=== PATIENT | male | born 2000 | race Caucasian/White ===

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

== ENCOUNTER 2020-03-09 07:09 | Inpatient (IN) | payer OTHER ==
[2020-03-09 07:19] LABS: Glucose,Whole Blood 202 mg/dL (75-99)
[2020-03-09] MEDS ORDERED: ONDANSETRON 4 MG/2 ML VIAL IVP STA ×2 (07:24→11:16)
[2020-03-09] MEDS ORDERED: KETOROLAC 30 MG/ML 1 ML VIAL IVP STA (07:24)
[2020-03-09] MEDS ORDERED: SODIUM CHLORIDE 0.9% 2,000 ML IV STA (07:24)
--- NOTE | 2020-03-09 07:28 | ED ---
General Adult HPI - General Source: patient, RN notes reviewed Mode of arrival: ambulatory Limitations: no limitations <Alfred Horowitz - Last Filed: 03/09/20 09:21> <Gilles Nelson - Last Filed: 03/09/20 10:58> - General Chief complaint: Abdominal Pain Stated complaint: Abdominal Pain Time Seen by Provider: 03/09/20 07:21 - History of Present Illness Initial comments: This a 19-year-old male presents emergency department to complaint of nausea vomiting abdominal pain. Patient states that he is known diabetic is regular injections. Patient states that his blood sugars have been slightly labile states that he started having abdominal discomfort and vomiting around 11 PM last night. Patient denies any fevers chills no localized abdominal pain no chest pain or shortness of breath. Patient states he feels like this when he is in DKA. He has meant that he feels like his heart was racing vomiting he is inc reased thirst and polyuria. Patient denies any hematemesis or coffee-ground emesis. (Alfred Horowitz) - Related Data Home Medications Medication Instructions Recorded Confirmed Insulin Aspart [NovoLOG] See Protocol SQ AC-TID 12/08/18 03/09/20 Insulin Glargine,Hum.rec.anlog 30 unit SQ HS 06/24/19 03/09/20 [Basaglar Kwikpen U-100] Albuterol Sulfate [Proair Hfa] 2 puff INHALATION RT-Q4H PRN 03/09/20 03/09/20 Allergies Allergy/AdvReac Type Severity Reaction Status Date / Time Penicillins Allergy Rash/Hives Verified 03/09/20 08:59 Review of Systems ROS Other: All systems not noted in ROS Statement are negative. <Alfred Horowitz - Last Filed: 03/09/20 09:21> ROS Other: All systems not noted in ROS Statement are negative. <Gilles Nelson - Last Filed: 03/09/20 10:58> ROS Statement: Those systems with pertinent positive or pertinent negative responses have been documented in the HPI. Past Medical History Past Medical History: Diabetes Mellitus Additional Past Medical History / Comment(s): IDDM type I, DKA 5 yrs ago. History of Any Multi-Drug Resistant Organisms: None Reported Past Surgical History: No Surgical Hx Reported Past Anesthesia/Blood Transfusion Reactions: Unable to Obtain Additional Past Anesthesia/Blood Transfusion Reaction / Comment(s): Pt has never had surgery. Past Psychological History: No Psychological Hx Reported Smoking Status: Current every day smoker Past Alcohol Use History: None Reported Past Drug Use History: None Reported - Past Family History Mother Family Medical History: No Reported History Father Family Medical History: Hypertension <Alfred Horowitz - Last Filed: 03/09/20 09:21> General Exam Limitations: no limitations General appearance: alert, in no apparent distress Head exam: Present: atraumatic, normocephalic, normal inspection Eye exam: Present: normal appearance, PERRL, EOMI. Absent: scleral icterus, conjunctival injection, periorbital swelling ENT exam: Present: normal exam, normal oropharynx, mucous membranes moist Neck exam: Present: normal inspection, full ROM. Absent: tenderness, meningismus, lymphadenopathy Respiratory exam: Present: normal lung sounds bilaterally. Absent: respiratory distress, wheezes, rales, rhonchi, stridor Cardiovascular Exam: Present: normal rhythm, tachycardia, normal heart sounds. Absent: systolic murmur, diastolic murmur, rubs, gallop, clicks GI/Abdominal exam: Present: soft, tenderness (Moderate diffuse), normal bowel sounds. Absent: distended, guarding, rebound, rigid Back exam: Absent: CVA tenderness (R), CVA tenderness (L) Neurological exam: Present: alert, oriented X3 Skin exam: Present: warm, dry, intact, normal color. Absent: rash <Alfred Horowitz - Last Filed: 03/09/20 09:21> Course <Gilles Nelson - Last Filed: 03/09/20 10:58> Vital Signs 03/09/20 03/09/20 03/09/20 07:13 08:38 09:37 Temperature 97.8 F Pulse Rate 140 H 116 H 108 H Respiratory 20 16 Rate Blood Pressure 134/89 131/87 O2 Sat by Pulse 96 95 100 Oximetry - Reevaluation(s) Reevaluation #1: 03/09/20 10:58 PA supervision: I did personally evaluate this case patient does present with signs and symptoms and findings consistent with DKA. He will be admitted the case is discussed with Dr. Leahy. (Gilles Nelson) Medical Decision Making - Lab Data Result diagrams: 03/09/20 07:43 03/09/20 07:43 <Alfred Horowitz - Last Filed: 03/09/20 09:21> - Lab Data Result diagrams: 03/09/20 07:43 03/09/20 07:43 <Gilles Nelson - Last Filed: 03/09/20 10:58> - Medical Decision Making 19-year-old male presented for nausea vomiting may well blood sugars. Patient found to be in DKA blood sugar 200 with anion gap at 27 and CO2 of 12. Patient will be admitted for IV hydration, insulin and further management (Alfred Horowitz) - Lab Data Lab Results 03/09/20 03/09/20 03/09/20 Range/Units 07:18 07:43 07:43 WBC 11.3 H (4.0-11.0) k/uL RBC 5.55 (4.30-5.90) m/uL Hgb 18.7 H (13.0-17.5) gm/dL Hct 51.6 (39.0-53.0) % MCV 93.0 (80.0-100.0) fL MCH 33.4 (25.0-35.0) pg MCHC 36.2 (31.0-37.0) g/dL RDW 13.8 (11.5-15.5) % Plt Count 255 (150-450) k/uL Neutrophils % 80 % Lymphocytes % 10 % Monocytes % 8 % Eosinophils % 1 % Basophils % 1 % Neutrophils # 9.0 H (1.3-7.7) k/uL Lymphocytes # 1.1 (1.0-4.8) k/uL Monocytes # 0.9 (0-1.0) k/uL Eosinophils # 0.1 (0-0.7) k/uL Basophils # 0.1 (0-0.2) k/uL VBG pH (7.31-7.41) VBG pCO2 (37-51) mmHg VBG HCO3 (24-28) mmol/L Sodium 138 (137-145) mmol/L Potassium 3.7 (3.5-5.1) mmol/L Chloride 99 (98-107) mmol/L Carbon Dioxide (22-30) mmol/L Anion Gap 27 mmol/L BUN 16 (9-20) mg/dL Creatinine 0.88 (0.66-1.25) mg/dL Est GFR (CKD-EPI)AfAm >90 (>60 ml/min/1.73 sqM) Est GFR (CKD-EPI)NonAf >90 (>60 ml/min/1.73 sqM) Glucose 160 H (74-99) mg/dL POC Glucose (mg/dL) 202 H (75-99) mg/dL POC Glu [employer] Operator ID Ladonna Lewis Lactic Ac Sepsis Rflx Plasma Lactic Acid Moncho (0.7-2.0) mmol/L Calcium 10.1 (8.4-10.2) mg/dL Total Bilirubin 0.6 (0.2-1.3) mg/dL AST 27 (17-59) U/L ALT 22 (4-49) U/L Alkaline Phosphatase 148 H (38-126) U/L Total Protein 8.3 H (6.3-8.2) g/dL Albumin 5.0 (3.5-5.0) g/dL Amylase Cancelled Lipase Cancelled Urine Color Urine Appearance (Clear) Urine pH (5.0-8.0) Ur Specific [place] (1.001-1.035) Urine Protein (Negative) Urine Glucose (UA) (Negative) Urine Ketones (Negative) Urine Blood (Negative) Urine Nitrite (Negative) Urine Bilirubin (Negative) Urine Urobilinogen (<2.0) mg/dL Ur Leukocyte Esterase (Negative) Urine RBC (0-5) /hpf Urine WBC (0-5) /hpf Ur Squamous Epith Cells (0-4) /hpf Amorphous Sediment (None) /hpf Urine Bacteria (None) /hpf Hyaline Casts (0-2) /lpf Granular Casts (0) /lpf Urine Mucus (None) /hpf Acetone, Qual Positive (Negative) 03/09/20 03/09/20 03/09/20 Range/Units 07:43 07:43 08:26 WBC (4.0-11.0) k/uL RBC (4.30-5.90) m/uL Hgb (13.0-17.5) gm/dL Hct (39.0-53.0) % MCV (80.0-100.0) fL MCH (25.0-35.0) pg MCHC (31.0-37.0) g/dL RDW (11.5-15.5) % Plt Count (150-450) k/uL Neutrophils % % Lymphocytes % % Monocytes % % Eosinophils % % Basophils % % Neutrophils # (1.3-7.7) k/uL Lymphocytes # (1.0-4.8) k/uL Monocytes # (0-1.0) k/uL Eosinophils # (0-0.7) k/uL Basophils # (0-0.2) k/uL VBG pH 7.27 L (7.31-7.41) VBG pCO2 39 (37-51) mmHg VBG HCO3 17 L (24-28) mmol/L Sodium (137-145) mmol/L Potassium (3.5-5.1) mmol/L Chloride (98-107) mmol/L Carbon Dioxide (22-30) mmol/L Anion Gap mmol/L BUN (9-20) mg/dL Creatinine (0.66-1.25) mg/dL Est GFR (CKD-EPI)AfAm (>60 ml/min/1.73 sqM) Est GFR (CKD-EPI)NonAf (>60 ml/min/1.73 sqM) Glucose (74-99) mg/dL POC Glucose (mg/dL) (75-99) mg/dL POC Glu [employer] Operator ID Lactic Ac Sepsis Rflx Y Plasma Lactic Acid Mnocho 2.3 H* (0.7-2.0) mmol/L Calcium (8.4-10.2) mg/dL Total Bilirubin (0.2-1.3) mg/dL AST (17-59) U/L ALT (4-49) U/L Alkaline Phosphatase (38-126) U/L Total Protein (6.3-8.2) g/dL Albumin (3.5-5.0) g/dL Amylase Lipase Urine Color Urine Appearance (Clear) Urine pH (5.0-8.0) Ur Specific [place] (1.001-1.035) Urine Protein (Negative) Urine Glucose (UA) (Negative) Urine Ketones (Negative) Urine Blood (Negative) Urine Nitrite (Negative) Urine Bilirubin (Negative) Urine Urobilinogen (<2.0) mg/dL Ur Leukocyte Esterase (Negative) Urine RBC (0-5) /hpf Urine WBC (0-5) /hpf Ur Squamous Epith Cells (0-4) /hpf Amorphous Sediment (None) /hpf Urine Bacteria (None) /hpf Hyaline Casts (0-2) /lpf Granular Casts (0) /lpf Urine Mucus (None) /hpf Acetone, Qual (Negative) 03/09/20 03/09/20 Range/Units 09:16 09:47 WBC (4.0-11.0) k/uL RBC (4.30-5.90) m/uL Hgb (13.0-17.5) gm/dL Hct (39.0-53.0) % MCV (80.0-100.0) fL MCH (25.0-35.0) pg MCHC (31.0-37.0) g/dL RDW (11.5-15.5) % Plt Count (150-450) k/uL Neutrophils % % Lymphocytes % % Monocytes % % Eosinophils % % Basophils % % Neutrophils # (1.3-7.7) k/uL Lymphocytes # (1.0-4.8) k/uL Monocytes # (0-1.0) k/uL Eosinophils # (0-0.7) k/uL Basophils # (0-0.2) k/uL VBG pH (7.31-7.41) VBG pCO2 (37-51) mmHg VBG HCO3 (24-28) mmol/L Sodium (137-145) mmol/L Potassium (3.5-5.1) mmol/L Chloride (98-107) mmol/L Carbon Dioxide (22-30) mmol/L Anion Gap mmol/L BUN (9-20) mg/dL Creatinine (0.66-1.25) mg/dL Est GFR (CKD-EPI)AfAm (>60 ml/min/1.73 sqM) Est GFR (CKD-EPI)NonAf (>60 ml/min/1.73 sqM) Glucose (74-99) mg/dL POC Glucose (mg/dL) 161 H (75-99) mg/dL POC Glu [employer] Operator ID Lactic Ac Sepsis Rflx Plasma Lactic Acid Moncho (0.7-2.0) mmol/L Calcium (8.4-10.2) mg/dL Total Bilirubin (0.2-1.3) mg/dL AST (17-59) U/L ALT (4-49) U/L Alkaline Phosphatase (38-126) U/L Total Protein (6.3-8.2) g/dL Albumin (3.5-5.0) g/dL Amylase Lipase Urine Color Yellow Urine Appearance Cloudy (Clear) Urine pH 6.5 (5.0-8.0) Ur Specific [place] 1.025 (1.001-1.035) Urine Protein 3+ H (Negative) Urine Glucose (UA) 3+ H (Negative) Urine Ketones 4+ H (Negative) Urine Blood Moderate H (Negative) Urine Nitrite Negative (Negative) Urine Bilirubin 2+ H (Negative) Urine Urobilinogen 8.0 (<2.0) mg/dL Ur Leukocyte Esterase Negative (Negative) Urine RBC 1 (0-5) /hpf Urine WBC 12 H (0-5) /hpf Ur Squamous Epith Cells 4 (0-4) /hpf Amorphous Sediment Moderate H (None) /hpf Urine Bacteria Rare H (None) /hpf Hyaline Casts 1 (0-2) /lpf Granular Casts 45 (0) /lpf Urine Mucus Rare H (None) /hpf Acetone, Qual (Negative) Critical Care Time Critical Care Time: Yes Total Critical Care Time: 35 <Alfred Horowitz - Last Filed: 03/09/20 09:21> Critical Care Time: Total 35 minutes of critical care time he is initially evaluated patient and review past medical history according labs fluids and medications. Patient found to be in DKA with anion gap 27 CO2 of 12 pH is 7.27 patiently admitted to telemetry case discussed with admitting physician. (Alfred Horowitz) Disposition <Alfred Horowitz - Last Filed: 03/09/20 09:21> <Gilles Nelson - Last Filed: 03/09/20 10:58> Clinical Impression: DKA, type 1, Nausea & vomiting Disposition: ADMITTED IP TO THIS HOSP Condition: Serious Referrals: Miguel Evans MD [Primary Care Provider] - 1-2 days
[2020-03-09 07:56] LABS: VBG PH 7.27 (7.31-7.41)
[2020-03-09 08:17] LABS: Basophils # (A) 0.1 k/uL (0-0.2); Basophils % (A) 1 %; Eosinophils # (A) 0.1 k/uL (0-0.7); Eosinophils % (A) 1 %; HCT 51.6 % (39.0-53.0); Lymphocytes # (A) 1.1 k/uL (1.0-4.8); Lymphocytes % (A) 10 %; Mean Platelet Volume 7.3; Monocytes # (A) 0.9 k/uL (0-1.0); Monocytes % (A) 8 %; Neutrophils % (A) 80 %; Platelet Count 255 k/uL (150-450); RBC 5.55 m/uL (4.30-5.90); RDW 13.8 % (11.5-15.5); WBC 11.3 k/uL (4.0-11.0)
[2020-03-09 08:35] LABS: MCH 33.4 pg (25.0-35.0); MCHC 36.2 g/dL (31.0-37.0)
[2020-03-09 08:37] LABS: HGB 18.7 gm/dL (13.0-17.5)
[2020-03-09] MEDS ORDERED: diphenhydrAMINE 50 MG/ML 1 ML VIAL IVP STA (09:01)
[2020-03-09] MEDS ORDERED: METOCLOPRAMIDE 5 MG/ML 2 ML VIAL IVP STA (09:01)
[2020-03-09 09:13] LABS: Chloride 99 mmol/L (98-107); Potassium 3.7 mmol/L (3.5-5.1); Sodium 138 mmol/L (137-145)
[2020-03-09 09:15] LABS: ALT 22 U/L (4-49); AST 27 U/L (17-59); African American GFR (CKD) >90 (>60 ml/min/1.73 sqM); Alkaline Phosphatase 148 U/L (38-126); Anion Gap 27 mmol/L; Blood Urea Nitrogen 16 mg/dL (9-20); Calcium 10.1 mg/dL (8.4-10.2); Glucose 160 mg/dL (74-99); Non-African American GFR(CKD) >90 (>60 ml/min/1.73 sqM); Total Bilirubin 0.6 mg/dL (0.2-1.3); Total Protein 8.3 g/dL (6.3-8.2)
[2020-03-09] MEDS ORDERED: INSULIN REGULAR 100 UNIT in SODIUM CHLORIDE 0.9% 100 ML IV SCH (09:30)
[2020-03-09] MEDS ORDERED: D5-0.45% NACL WITH KCL 20MEQ/L 1,000 ML IV SCH (09:30)
[2020-03-09] MEDS: SODIUM CHLORIDE 0.9% 1,000 ML IV SCH ×3 (09:46→17:07)
[2020-03-09 09:53] LABS: Amorphous Sediment,Urine Moderate /hpf; Appearance,Urine Cloudy (Clear); Bacteria,Urine Rare /hpf; Bilirubin,Urine 2+ (Negative); Blood,Urine Moderate (Negative); Color,Urine Yellow; Glucose,Urine (UA) 3+ (Negative); Granular Casts,Urine 45 /lpf (0); Hyaline Casts,Urine 1 /lpf (0-2); Leukocyte Esterase,Urine Negative (Negative); Mucus,Urine Rare /hpf; Nitrite,Urine Negative (Negative); PH, Urine 6.5 (5.0-8.0); Protein,Urine 3+ (Negative); RBC,Urine 1 /hpf (0-5); Specific Gravity,Urine 1.025 (1.001-1.035); Squamous Epithelial Cell,Urine 4 /hpf (0-4); WBC,Urine 12 /hpf (0-5)
[2020-03-09 09:57] LABS: Ketones,Urine 4+ (Negative)
[2020-03-09 09:58] LABS: Glucose,Whole Blood 161 mg/dL (75-99)
[2020-03-09] MEDS ORDERED: MORPHINE SULFATE 2 MG/ML SYRINGE IVP ONE (11:16)
[2020-03-09 11:38] LABS: Chloride 107 mmol/L (98-107); Potassium 3.6 mmol/L (3.5-5.1); Sodium 137 mmol/L (137-145)
[2020-03-09 12:23] LABS: African American GFR (CKD) >90 (>60 ml/min/1.73 sqM); Blood Urea Nitrogen 12 mg/dL (9-20); Glucose 169 mg/dL (74-99); Non-African American GFR(CKD) >90 (>60 ml/min/1.73 sqM); Phosphorus 4.6 mg/dL (2.5-4.5)
[2020-03-09 12:29] LABS: Anion Gap 20 mmol/L; Carbon Dioxide 10 mmol/L (22-30)
[2020-03-09 12:59] LABS: Glucose,Whole Blood 205 mg/dL (75-99)
[2020-03-09] MEDS ORDERED: Potassium Replacement Protocol 1 EACH MISC MISCELLANE PRN ×2 (13:33→17:05)
[2020-03-09] MEDS ORDERED: Magnesium Replacement Protocol 1 EACH MISC MISCELLANE PRN (13:33)
[2020-03-09] MEDS ORDERED: ONDANSETRON 4 MG/2 ML VIAL IVP PRN (13:46)
[2020-03-09 14:15] LABS: Glucose,Whole Blood 188 mg/dL (75-99)
[2020-03-09] MEDS: INSULIN ASPART (NovoLOG) 100 UNIT/ML VIAL SQ SCH ×3 (14:17→20:20)
[2020-03-09] MEDS: D5-0.45% NACL WITH KCL 20MEQ/L 1,000 ML IV SCH ×2 (14:18→20:21)
[2020-03-09] MEDS: INSULIN REGULAR 100 UNIT in SODIUM CHLORIDE 0.9% 100 ML IV SCH (14:21)
[2020-03-09] MEDS ORDERED: ALBUTEROL NEBULIZED 2.5 MG/3 ML INHALATION PRN (14:50)
[2020-03-09 15:13] LABS: Glucose,Whole Blood 179 mg/dL (75-99)
--- NOTE | 2020-03-09 15:19 | P.HPIM ---
History of Present Illness Patient is a pleasant 89-year-old male came in the emergency department complaining some nausea vomiting abdominal pain which started last night. Patient is found to be in DKA. Patient the sometimes misses his insulin. Patient denied any hematemesis which is a patient denied any diarrhea patient denied any fever chills patient and dysuria patient denied any cough. There is no evidence of sepsis at this time. Patient was started on DKA protocol patient is anion gap of 20 with a very low serum bicarbonate. Review of Systems REVIEW OF SYSTEMS: CONSTITUTIONAL: No fever, no malaise, no fatigue. HEENT: No recent visual problems or hearing problems. Denied any sore throat. CARDIOVASCULAR: No chest pain, orthopnea, PND, no palpitations, no syncope. PULMONARY: As mentioned in HPI GASTROINTESTINAL: No diarrhea, no nausea, no vomiting, no abdominal pain. NEUROLOGICAL: No headaches, no weakness, no numbness. HEMATOLOGICAL: Denies any bleeding or petechiae. GENITOURINARY: Denies any burning micturition, frequency, or urgency. MUSCULOSKELETAL/RHEUMATOLOGICAL: Denies any joint pain, swelling, or any muscle pain. ENDOCRINE: Denies any polyuria or polydipsia. The rest of the 14-point review of systems is negative. Past Medical History Past Medical History: Diabetes Mellitus Additional Past Medical History / Comment(s): IDDM type I, DKA 5 yrs ago. History of Any Multi-Drug Resistant Organisms: None Reported Past Surgical History: No Surgical Hx Reported Past Anesthesia/Blood Transfusion Reactions: Unable to Obtain Additional Past Anesthesia/Blood Transfusion Reaction / Comment(s): Pt has never had surgery. Past Psychological History: No Psychological Hx Reported Additional Psychological History / Comment(s): Pt resides with father and sometimes with mother. He is independent. He is currently going to obtain his GED. He works some. Smoking Status: Current every day smoker Past Alcohol Use History: None Reported Past Drug Use History: None Reported - Past Family History Mother Family Medical History: No Reported History Father Family Medical History: Hypertension Medications and Allergies Home Medications Medication Instructions Recorded Confirmed Type Insulin Aspart [NovoLOG] See Protocol SQ AC-TID 12/08/18 03/09/20 History Insulin Glargine,Hum.rec.anlog 30 unit SQ HS 06/24/19 03/09/20 History [Basaglar Kwikpen U-100] Albuterol Sulfate [Proair Hfa] 2 puff INHALATION RT-Q4H PRN 03/09/20 03/09/20 History Allergies Allergy/AdvReac Type Severity Reaction Status Date / Time Penicillins Allergy Rash/Hives Verified 03/09/20 08:59 Physical Exam Vitals: Vital Signs Temp Pulse Pulse Resp BP BP Pulse Ox 03/09/20 12:00 120 H 18 146/102 98 03/09/20 11:24 98 F 120 H 16 129/89 98 03/09/20 09:37 108 H 16 131/87 100 03/09/20 08:38 116 H 95 03/09/20 07:13 97.8 F 140 H 20 134/89 96 Intake and Output 03/09/20 03/09/20 03/09/20 06:59 14:59 22:59 Other: # Voids 1 Weight 68.039 kg PHYSICAL EXAMINATION: GENERAL: The patient is alert and oriented x3, not in any acute distress. Well developed, well nourished. Thin built HEENT: Pupils are round and equally reacting to light. EOMI. No scleral icterus. No conjunctival pallor. Normocephalic, atraumatic. No pharyngeal erythema. No thyromegaly. CARDIOVASCULAR: S1 and S2 present. No murmurs, rubs, or gallops. PULMONARY: Chest is clear to auscultation, no wheezing or crackles. ABDOMEN: Soft, tenderness in the epigastric area, nondistended, normoactive bowel sounds. No palpable organomegaly. MUSCULOSKELETAL: No joint swelling or deformity. EXTREMITIES: No cyanosis, clubbing, or pedal edema. NEUROLOGICAL: Gross neurological examination did not reveal any focal deficits. SKIN: No rashes. Results CBC & Chem 7: 03/09/20 07:43 03/09/20 11:08 Labs: Abnormal Lab Results - Last 24 Hours (Table) 03/09/20 03/09/20 03/09/20 Range/Units 07:18 07:43 07:43 WBC 11.3 H (4.0-11.0) k/uL Hgb 18.7 H (13.0-17.5) gm/dL Neutrophils # 9.0 H (1.3-7.7) k/uL VBG pH (7.31-7.41) VBG HCO3 (24-28) mmol/L Carbon Dioxide (22-30) mmol/L Creatinine (0.66-1.25) mg/dL Glucose 160 H (74-99) mg/dL POC Glucose (mg/dL) 202 H (75-99) mg/dL Plasma Lactic Acid Moncho (0.7-2.0) mmol/L Phosphorus (2.5-4.5) mg/dL Alkaline Phosphatase 148 H (38-126) U/L Total Protein 8.3 H (6.3-8.2) g/dL Urine Protein (Negative) Urine Glucose (UA) (Negative) Urine Ketones (Negative) Urine Blood (Negative) Urine Bilirubin (Negative) Urine WBC (0-5) /hpf Amorphous Sediment (None) /hpf Urine Bacteria (None) /hpf Urine Mucus (None) /hpf 03/09/20 03/09/20 03/09/20 Range/Units 07:43 07:43 09:16 WBC (4.0-11.0) k/uL Hgb (13.0-17.5) gm/dL Neutrophils # (1.3-7.7) k/uL VBG pH 7.27 L (7.31-7.41) VBG HCO3 17 L (24-28) mmol/L Carbon Dioxide (22-30) mmol/L Creatinine (0.66-1.25) mg/dL Glucose (74-99) mg/dL POC Glucose (mg/dL) (75-99) mg/dL Plasma Lactic Acid Moncho 2.3 H* (0.7-2.0) mmol/L Phosphorus (2.5-4.5) mg/dL Alkaline Phosphatase (38-126) U/L Total Protein (6.3-8.2) g/dL Urine Protein 3+ H (Negative) Urine Glucose (UA) 3+ H (Negative) Urine Ketones 4+ H (Negative) Urine Blood Moderate H (Negative) Urine Bilirubin 2+ H (Negative) Urine WBC 12 H (0-5) /hpf Amorphous Sediment Moderate H (None) /hpf Urine Bacteria Rare H (None) /hpf Urine Mucus Rare H (None) /hpf 03/09/20 03/09/20 03/09/20 Range/Units 09:47 11:08 12:57 WBC (4.0-11.0) k/uL Hgb (13.0-17.5) gm/dL Neutrophils # (1.3-7.7) k/uL VBG pH (7.31-7.41) VBG HCO3 (24-28) mmol/L Carbon Dioxide 10 L (22-30) mmol/L Creatinine 0.62 L (0.66-1.25) mg/dL Glucose 169 H (74-99) mg/dL POC Glucose (mg/dL) 161 H 205 H (75-99) mg/dL Plasma Lactic Acid Moncho (0.7-2.0) mmol/L Phosphorus 4.6 H (2.5-4.5) mg/dL Alkaline Phosphatase (38-126) U/L Total Protein (6.3-8.2) g/dL Urine Protein (Negative) Urine Glucose (UA) (Negative) Urine Ketones (Negative) Urine Blood (Negative) Urine Bilirubin (Negative) Urine WBC (0-5) /hpf Amorphous Sediment (None) /hpf Urine Bacteria (None) /hpf Urine Mucus (None) /hpf 03/09/20 03/09/20 Range/Units 14:14 15:12 WBC (4.0-11.0) k/uL Hgb (13.0-17.5) gm/dL Neutrophils # (1.3-7.7) k/uL VBG pH (7.31-7.41) VBG HCO3 (24-28) mmol/L Carbon Dioxide (22-30) mmol/L Creatinine (0.66-1.25) mg/dL Glucose (74-99) mg/dL POC Glucose (mg/dL) 188 H 179 H (75-99) mg/dL Plasma Lactic Acid Moncho (0.7-2.0) mmol/L Phosphorus (2.5-4.5) mg/dL Alkaline Phosphatase (38-126) U/L Total Protein (6.3-8.2) g/dL Urine Protein (Negative) Urine Glucose (UA) (Negative) Urine Ketones (Negative) Urine Blood (Negative) Urine Bilirubin (Negative) Urine WBC (0-5) /hpf Amorphous Sediment (None) /hpf Urine Bacteria (None) /hpf Urine Mucus (None) /hpf Thrombosis Risk Factor Assmnt - Choose All That Apply Any of the Below Risk Factors Present?: No Other Risk Factors: No Thrombosis Risk Factor Assessment Level: Very Low Risk Assessment and Plan Plan: -Diabetic keto acidosis leading to epigastric abdominal pain nausea vomiting: Patient will be continued on D5 half-normal saline with insulin was anion gap resolves patient was switched to subcu any since been followed by initiation of diet and pre-meal insulin with carb counting. At that time patient will be switched to normal saline. -Anion gap and non-anion gap and work acidosis anion gap ACIDOSIS secondary to diverticular acidosis non-anion gap is secondary to hyperchloremia -Leukocytosis reactive seconded to DKA -Tachycardia secondary to severe intravascular depletion from DKA continue with IV fluids as mentioned above --Diabetes mellitus: Patient will be resumed on his long-acting insulin as mentioned above along with pre-meal insulin -DVT prophylaxis early ambulation GI prophylaxis with Protonix
[2020-03-09 15:46] VITALS: BMI 20.9
[2020-03-09 16:04] LABS: Glucose,Whole Blood 150 mg/dL (75-99)
[2020-03-09] MEDS: PANTOPRAZOLE 40 MG/10 ML VIAL IVP SCH (16:04)
[2020-03-09 16:27] LABS: African American GFR (CKD) >90 (>60 ml/min/1.73 sqM); Anion Gap 21 mmol/L; Blood Urea Nitrogen 10 mg/dL (9-20); Chloride 109 mmol/L (98-107); Glucose 154 mg/dL (74-99); Non-African American GFR(CKD) >90 (>60 ml/min/1.73 sqM); Potassium 3.4 mmol/L (3.5-5.1); Sodium 138 mmol/L (137-145)
[2020-03-09 16:37] LABS: Carbon Dioxide 8 mmol/L (22-30)
[2020-03-09 16:59] LABS: Glucose,Whole Blood 148 mg/dL (75-99)
[2020-03-09] MEDS: POTASSIUM CHLORIDE ER 20 MEQ TAB.ER PO SCH ×2 (18:01→19:00)
[2020-03-09 18:03] LABS: Glucose,Whole Blood 183 mg/dL (75-99)
[2020-03-09 19:27] LABS: Glucose,Whole Blood 208 mg/dL (75-99)
[2020-03-09 20:03] LABS: Glucose,Whole Blood 223 mg/dL (75-99)
[2020-03-09 21:03] LABS: Glucose,Whole Blood 222 mg/dL (75-99)
[2020-03-09 21:37] LABS: African American GFR (CKD) >90 (>60 ml/min/1.73 sqM); Anion Gap 15 mmol/L; Blood Urea Nitrogen 9 mg/dL (9-20); Calcium 7.8 mg/dL (8.4-10.2); Carbon Dioxide 12 mmol/L (22-30); Chloride 108 mmol/L (98-107); Glucose 217 mg/dL (74-99); Non-African American GFR(CKD) >90 (>60 ml/min/1.73 sqM); Sodium 135 mmol/L (137-145)
[2020-03-09 22:04] LABS: Glucose,Whole Blood 253 mg/dL (75-99)
[2020-03-09 23:14] LABS: Glucose,Whole Blood 219 mg/dL (75-99)
[2020-03-10 00:08] LABS: Glucose,Whole Blood 227 mg/dL (75-99)
[2020-03-10] MEDS: HYDROcodone/APAP 5-325MG 1 EACH TAB PO PRN ×3 (01:04→12:52)
[2020-03-10 01:08] LABS: Glucose,Whole Blood 206 mg/dL (75-99)
[2020-03-10 02:17] LABS: African American GFR (CKD) >90 (>60 ml/min/1.73 sqM); Anion Gap 13 mmol/L; Calcium 7.9 mg/dL (8.4-10.2); Carbon Dioxide 14 mmol/L (22-30); Chloride 108 mmol/L (98-107); Glucose 216 mg/dL (74-99); Non-African American GFR(CKD) >90 (>60 ml/min/1.73 sqM); Sodium 135 mmol/L (137-145)
[2020-03-10 02:18] LABS: Blood Urea Nitrogen 7 mg/dL (9-20); Potassium 4.3 mmol/L (3.5-5.1)
[2020-03-10 02:18] LABS: Glucose,Whole Blood 211 mg/dL (75-99)
[2020-03-10 03:17] LABS: Glucose,Whole Blood 202 mg/dL (75-99)
[2020-03-10 04:24] LABS: Glucose,Whole Blood 193 mg/dL (75-99)
[2020-03-10] MEDS: SODIUM CHLORIDE 0.9% 1,000 ML IV SCH ×2 (04:28→05:13)
[2020-03-10] MEDS: INSULIN DETEMIR (LEVEMIR) 100 UNIT/ML SYR SQ SCH ×2 (04:28→14:11)
[2020-03-10] MEDS: D5-0.45% NACL WITH KCL 20MEQ/L 1,000 ML IV SCH (04:29)
[2020-03-10] MEDS: INSULIN REGULAR 100 UNIT in SODIUM CHLORIDE 0.9% 100 ML IV SCH (04:38)
[2020-03-10 05:18] LABS: Glucose,Whole Blood 196 mg/dL (75-99)
[2020-03-10 06:10] LABS: Glucose,Whole Blood 197 mg/dL (75-99)
[2020-03-10] MEDS: INSULIN ASPART (NovoLOG) 100 UNIT/ML VIAL SQ SCH ×2 (06:46→12:55)
[2020-03-10 06:55] LABS: Glucose,Whole Blood 187 mg/dL (75-99)
[2020-03-10 08:04] LABS: Glucose,Whole Blood 204 mg/dL (75-99)
[2020-03-10 08:55] LABS: Potassium 3.8 mmol/L (3.5-5.1)
[2020-03-10 08:56] LABS: African American GFR (CKD) >90 (>60 ml/min/1.73 sqM); Anion Gap 8 mmol/L; Blood Urea Nitrogen 6 mg/dL (9-20); Calcium 7.8 mg/dL (8.4-10.2); Carbon Dioxide 19 mmol/L (22-30); Chloride 107 mmol/L (98-107); Glucose 209 mg/dL (74-99); Non-African American GFR(CKD) >90 (>60 ml/min/1.73 sqM); Sodium 134 mmol/L (137-145)
[2020-03-10 09:03] LABS: Glucose,Whole Blood 169 mg/dL (75-99)
[2020-03-10] MEDS ORDERED: SODIUM CHLORIDE 0.9% 1,000 ML IV SCH (09:30)
[2020-03-10 10:08] VITALS: TEMP 97.6
[2020-03-10] MEDS: PANTOPRAZOLE 40 MG/10 ML VIAL IVP SCH (10:20)
[2020-03-10 11:27] LABS: Glucose,Whole Blood 280 mg/dL (75-99)
--- NOTE | 2020-03-10 12:04 | P.HPIM ---
History of Present Illness 19-year-old male came in the emergency department complaining some nausea vomiting abdominal pain which started last night. Patient is found to be in DKA. Patient the sometimes misses his insulin. Patient denied any hematemesis which is a patient denied any diarrhea patient denied any fever chills patient and dysuria patient denied any cough. There is no evidence of sepsis at this time. Patient was started on DKA protocol patient is anion gap of 20 with a very low serum bicarbonate. 03/10/2020 Patient DKA resolved patient is feeling much better with the still has some abdominal discomfort which improves with Protonix patient probably has progressive disease or gastritis because of which patient was discharged on 14 d ays of Prilosec. Patient is being discharged today I am increasing the dose of Lantus but patient received Lantus today morning patient usually takes at night to Nathalie have asked him to take Lantus 15 units tonight as late as possible and resume on 35 units of Lantus tomorrow night. Patient will continue his car counting. PHYSICAL EXAMINATION: GENERAL: The patient is alert and oriented x3, not in any acute distress. Well developed, well nourished. HEENT: Pupils are round and equally reacting to light. EOMI. No scleral icterus. No conjunctival pallor. Normocephalic, atraumatic. No pharyngeal erythema. No thyromegaly. CARDIOVASCULAR: S1 and S2 present. No murmurs, rubs, or gallops. PULMONARY: Chest is clear to auscultation, no wheezing or crackles. ABDOMEN: Soft, nontender, nondistended, normoactive bowel sounds. No palpable organomegaly. MUSCULOSKELETAL: No joint swelling or deformity. EXTREMITIES: No cyanosis, clubbing, or pedal edema. NEUROLOGICAL: Gross neurological examination did not reveal any focal deficits. SKIN: No rashes. Assessment and Plan Plan: -Diabetic keto acidosis leading to epigastric abdominal pain nausea vomiting: -Possible peptic ulcer disease. -Anion gap and non-anion gap and work acidosis anion gap ACIDOSIS secondary to diabetic keto acidosis and hyperchloremia respectively both of which improved -Leukocytosis reactive secondary to DKA -Tachycardia secondary to severe intravascular depletion from DKA improved now with IV fluids but still heart rate is in 100s --Diabetes mellitus: Past Medical History Past Medical History: Diabetes Mellitus Additional Past Medical History / Comment(s): IDDM type I, DKA 5 yrs ago. History of Any Multi-Drug Resistant Organisms: None Reported Past Surgical History: No Surgical Hx Reported Past Anesthesia/Blood Transfusion Reactions: Unable to Obtain Additional Past Anesthesia/Blood Transfusion Reaction / Comment(s): Pt has never had surgery. Past Psychological History: No Psychological Hx Reported Additional Psychological History / Comment(s): Pt resides with father and sometimes with mother. He is independent. He is currently going to obtain his GED. He works some. Smoking Status: Current every day smoker Past Alcohol Use History: None Reported Past Drug Use History: None Reported - Past Family History Mother Family Medical History: No Reported History Father Family Medical History: Hypertension Medications and Allergies Home Medications Medication Instructions Recorded Confirmed Type Insulin Aspart [NovoLOG] See Protocol SQ AC-TID 12/08/18 03/09/20 History Albuterol Sulfate [Proair Hfa] 2 puff INHALATION RT-Q4H PRN 03/09/20 03/09/20 History Insulin Glargine,Hum.rec.anlog 34 unit SQ HS #0 03/10/20 03/09/20 Rx [Basaglar Kwikpen U-100] Allergies Allergy/AdvReac Type Severity Reaction Status Date / Time Penicillins Allergy Rash/Hives Verified 03/09/20 08:59 Physical Exam Vitals: Vital Signs Temp Pulse Resp BP Pulse Ox 03/10/20 09:00 97.6 F 105 H 17 125/83 97 03/10/20 03:39 98.4 F 125 H 17 127/63 97 03/09/20 23:53 98.3 F 114 H 18 118/79 98 03/09/20 20:00 98.1 F 136 H 16 121/73 97 03/09/20 16:30 98.4 F 120 H 19 126/81 96 Intake and Output 03/09/20 03/10/20 03/10/20 22:59 06:59 14:59 Intake Total 1103.230 16.422 780 Output Total 400 600 Balance 703.230 16.422 180 Intake: Intake, IV Titration 23.230 16.422 Amount Insulin Regular 100 unit 23.230 16.422 In Sodium Chloride 0.9% 100 ml @ 0.1 UNITS/KG/HR 6.872 mls/hr IV .[id number] [facility] Rx#:[id number] Oral 1080 780 Output: Urine 400 600 Other: Voiding Method Toilet Toilet # Voids 1 2 Weight 68.039 kg 67.2 kg Results CBC & Chem 7: 03/09/20 07:43 03/10/20 08:09 Labs: Abnormal Lab Results - Last 24 Hours (Table) 03/09/20 03/09/20 03/09/20 Range/Units 11:08 12:57 14:14 Sodium (137-145) mmol/L Potassium (3.5-5.1) mmol/L Chloride (98-107) mmol/L Carbon Dioxide 10 L (22-30) mmol/L BUN (9-20) mg/dL Creatinine 0.62 L (0.66-1.25) mg/dL Glucose 169 H (74-99) mg/dL POC Glucose (mg/dL) 205 H 188 H (75-99) mg/dL Calcium (8.4-10.2) mg/dL Phosphorus 4.6 H (2.5-4.5) mg/dL 03/09/20 03/09/20 03/09/20 Range/Units 15:12 15:49 16:02 Sodium (137-145) mmol/L Potassium 3.4 L (3.5-5.1) mmol/L Chloride 109 H (98-107) mmol/L Carbon Dioxide 8 L* (22-30) mmol/L BUN (9-20) mg/dL Creatinine 0.62 L (0.66-1.25) mg/dL Glucose 154 H (74-99) mg/dL POC Glucose (mg/dL) 179 H 150 H (75-99) mg/dL Calcium 8.0 L (8.4-10.2) mg/dL Phosphorus (2.5-4.5) mg/dL 03/09/20 03/09/20 03/09/20 Range/Units 16:58 18:02 19:25 Sodium (137-145) mmol/L Potassium (3.5-5.1) mmol/L Chloride (98-107) mmol/L Carbon Dioxide (22-30) mmol/L BUN (9-20) mg/dL Creatinine (0.66-1.25) mg/dL Glucose (74-99) mg/dL POC Glucose (mg/dL) 148 H 183 H 208 H (75-99) mg/dL Calcium (8.4-10.2) mg/dL Phosphorus (2.5-4.5) mg/dL 03/09/20 03/09/20 03/09/20 Range/Units 20:02 20:58 21:02 Sodium 135 L (137-145) mmol/L Potassium (3.5-5.1) mmol/L Chloride 108 H (98-107) mmol/L Carbon Dioxide 12 L (22-30) mmol/L BUN (9-20) mg/dL Creatinine 0.56 L (0.66-1.25) mg/dL Glucose 217 H (74-99) mg/dL POC Glucose (mg/dL) 223 H 222 H (75-99) mg/dL Calcium 7.8 L (8.4-10.2) mg/dL Phosphorus (2.5-4.5) mg/dL 03/09/20 03/09/20 03/10/20 Range/Units 22:04 23:12 00:07 Sodium (137-145) mmol/L Potassium (3.5-5.1) mmol/L Chloride (98-107) mmol/L Carbon Dioxide (22-30) mmol/L BUN (9-20) mg/dL Creatinine (0.66-1.25) mg/dL Glucose (74-99) mg/dL POC Glucose (mg/dL) 253 H 219 H 227 H (75-99) mg/dL Calcium (8.4-10.2) mg/dL Phosphorus (2.5-4.5) mg/dL 03/10/20 03/10/20 03/10/20 Range/Units 01:06 01:43 02:16 Sodium 135 L (137-145) mmol/L Potassium (3.5-5.1) mmol/L Chloride 108 H (98-107) mmol/L Carbon Dioxide 14 L (22-30) mmol/L BUN 7 L (9-20) mg/dL Creatinine 0.53 L (0.66-1.25) mg/dL Glucose 216 H (74-99) mg/dL POC Glucose (mg/dL) 206 H 211 H (75-99) mg/dL Calcium 7.9 L (8.4-10.2) mg/dL Phosphorus (2.5-4.5) mg/dL 03/10/20 03/10/20 03/10/20 Range/Units 03:16 04:22 05:17 Sodium (137-145) mmol/L Potassium (3.5-5.1) mmol/L Chloride (98-107) mmol/L Carbon Dioxide (22-30) mmol/L BUN (9-20) mg/dL Creatinine (0.66-1.25) mg/dL Glucose (74-99) mg/dL POC Glucose (mg/dL) 202 H 193 H 196 H (75-99) mg/dL Calcium (8.4-10.2) mg/dL Phosphorus (2.5-4.5) mg/dL 03/10/20 03/10/20 03/10/20 Range/Units 06:09 06:54 08:03 Sodium (137-145) mmol/L Potassium (3.5-5.1) mmol/L Chloride (98-107) mmol/L Carbon Dioxide (22-30) mmol/L BUN (9-20) mg/dL Creatinine (0.66-1.25) mg/dL Glucose (74-99) mg/dL POC Glucose (mg/dL) 197 H 187 H 204 H (75-99) mg/dL Calcium (8.4-10.2) mg/dL Phosphorus (2.5-4.5) mg/dL 03/10/20 03/10/20 03/10/20 Range/Units 08:09 09:02 11:25 Sodium 134 L (137-145) mmol/L Potassium (3.5-5.1) mmol/L Chloride (98-107) mmol/L Carbon Dioxide 19 L (22-30) mmol/L BUN 6 L (9-20) mg/dL Creatinine 0.52 L (0.66-1.25) mg/dL Glucose 209 H (74-99) mg/dL POC Glucose (mg/dL) 169 H 280 H (75-99) mg/dL Calcium 7.8 L (8.4-10.2) mg/dL Phosphorus (2.5-4.5) mg/dL Microbiology - Last 24 Hours (Table) 03/09/20 09:16 Urine Culture - Preliminary Urine,Voided Thrombosis Risk Factor Assmnt - Choose All That Apply Any of the Below Risk Factors Present?: No Other Risk Factors: No Thrombosis Risk Factor Assessment Level: Very Low Risk
[2020-03-10 14:28] VITALS: BP 126/85; PULSE 102; RESP 18
[2020-03-11 10:23] LABS: Hemoglobin A1C 12.9 % (4.0-6.0)
== END 2020-03-10 14:30 | disposition home or self-care (01) | DRG 639 ==
LOC: EC 07:09 → 3SCARD 10:57
PROVIDERS: ADMIT Internal Medicine; ATTEND Internal Medicine
DX: E10.10 Type 1 diabetes mellitus with ketoacidosis without coma (principal); D72.829 Elevated white blood cell count, unspecified; E87.8 Other disorders of electrolyte and fluid balance, not elsewhere classified; F17.210 Nicotine dependence, cigarettes, uncomplicated; Z79.4 Long term (current) use of insulin; Z82.49 Family history of ischemic heart disease and other diseases of the circulatory system; R00.0 Tachycardia, unspecified; R11.2 Nausea with vomiting, unspecified; K27.9 Peptic ulcer, site unspecified, unspecified as acute or chronic, without hemorrhage or perforation; Z88.0 Allergy status to penicillin; Z11.59 Encounter for screening for other viral diseases
CPT/HCPCS: 36415; 80048; 80051; 80053; 81001; 82009; 82565; 82803; 82947; 83036; 83605; 84100; 84520; 85025; 87086; 96361; 96374; 96375; 96376; 99285

== ENCOUNTER 2024-02-29 08:45 | Inpatient (IN) | payer OTHER ==
[2024-02-29] MEDS ORDERED: VANCOMYCIN IV PER PHARMACY 1 EACH MISC MISCELLANE PRN (09:18)
--- NOTE | 2024-02-29 09:21 | ED ---
Skin/Abscess/FB HPI - General Chief complaint: Skin/Abscess/Foreign Body Stated complaint: infection-legs and feet Time Seen by Provider: 02/29/24 08:54 Source: patient, family, RN notes reviewed Mode of arrival: wheelchair Limitations: no limitations - History of Present Illness Initial comments: 23-year-old male presents emergency department chief complaint bilateral leg infection. Patient is a nondiabetic states has been dealing with worsening infe ctions last several weeks. He states he is having increasing sores, blistering, increasing redness and discomfort of his legs. Patient states he was seen in outside facility and was recommended for inpatient treatment. Patient states his primary care physician is Dr. Bennett. Patient was once seen by dermatology felt initially started as a fungal infection possible bacterial infection states his blood sugars have been very labile. He does admit that he has significant neuropathy which makes his leg pain difficult. - Related Data Home Medications Medication Instructions Recorded Confirmed INSULIN LISPRO (For Pump) [humaLOG 0.01 units SQ-PUMP CONTINUOUS 02/29/24 02/29/24 (For Pump)] Insulin Glargine,Hum.rec.anlog 40 units SQ DAILY PRN 02/29/24 02/29/24 [Lantus Solostar Pen] Insulin Lispro [humaLOG Kwikpen] See Protocol SQ ACHS PRN 02/29/24 02/29/24 Allergies Allergy/AdvReac Type Severity Reaction Status Date / Time azithromycin Allergy Rash/Hives Verified 02/29/24 10:09 levofloxacin [From Levaquin] Allergy Tongue Verified 02/29/24 10:09 itched Penicillins Allergy Rash/Hives Verified 02/29/24 10:09 gabapentin AdvReac Swelling/Ed Verified 02/29/24 10:09 dell pregabalin [From Lyrica] AdvReac Swelling/Ed Verified 02/29/24 10:09 dell Review of Systems ROS Statement: Those systems with pertinent positive or pertinent negative responses have been documented in the HPI. ROS Other: All systems not noted in ROS Statement are negative. Past Medical History Past Medical History: Diabetes Mellitus Additional Past Medical History / Comment(s): IDDM type I, History of Any Multi-Drug Resistant Organisms: None Reported Past Surgical History: No Surgical Hx Reported Past Anesthesia/Blood Transfusion Reactions: Unable to Obtain Additional Past Anesthesia/Blood Transfusion Reaction / Comment(s): Pt has never had surgery. Past Psychological History: No Psychological Hx Reported Smoking Status: Vaper Past Alcohol Use History: None Reported Past Drug Use History: None Reported - Past Family History Mother Family Medical History: No Reported History Father Family Medical History: Hypertension General Exam Limitations: no limitations General appearance: alert, in no apparent distress Head exam: Present: atraumatic, normocephalic, normal inspection Respiratory exam: Present: normal lung sounds bilaterally. Absent: respiratory distress, wheezes, rales, rhonchi, stridor Cardiovascular Exam: Present: regular rate, normal rhythm, normal heart sounds. Absent: systolic murmur, diastolic murmur, rubs, gallop, clicks Extremities exam: Present: other (Bilateral lower extremities erythema from feet to the knees with open sores bilaterally on left lateral malleoli region, right medial malleolus region there is a large blister left anterior rodriguez extensive skin sloughing) Skin exam: Present: warm, rash. Absent: dry, normal color Course Vital Signs 02/29/24 02/29/24 02/29/24 09:00 10:20 11:02 Temperature 98.5 F 98.6 F Pulse Rate 107 H 81 88 Respiratory 18 16 18 Rate Blood Pressure 133/78 130/83 124/72 O2 Sat by Pulse 98 100 99 Oximetry 02/29/24 02/29/24 02/29/24 12:08 13:15 14:04 Temperature 98.5 F 98.5 F Pulse Rate 75 85 81 Respiratory 17 17 18 Rate Blood Pressure 136/81 128/72 125/85 O2 Sat by Pulse 99 99 97 Oximetry 02/29/24 15:02 Temperature Pulse Rate 89 Respiratory 17 Rate Blood Pressure 123/72 O2 Sat by Pulse 97 Oximetry Medical Decision Making - Medical Decision Making Was pt. sent in by a medical professional or institution (, PA, FAST FOOD SHIFT LEAD, urgent care, hospital, or snf...) When possible be specific @ -No Did you speak to anyone other than the patient for history (EMS, parent, family, police, friend...)? What history was obtained from this source @ -No Did you review nursing and triage notes (agree or disagree)? Why? @ -I reviewed and agree with nursing and triage notes Were old charts reviewed (outside hosp., previous admission, EMS record, old EKG, old radiological studies, urgent care reports/EKG's, snf records)? Report findings @ -No old charts were reviewed Differential Diagnosis (chest pain, altered mental status, abdominal pain women, abdominal pain men, vaginal bleeding, weakness, fever, dyspnea, syncope, headache, dizziness, GI bleed, back pain, seizure, CVA, palpatations, mental health, musculoskeletal)? @ -[Cellulitis, fungal infection, diabetic ulceration, X-rays interpreted by me (1pt min.). @ -None done CT interpreted by me (1pt min.). @ -None done U/S interpreted by me (1pt. min.). @ -None done What testing was considered but not performed or refused? (CT, X-rays, U/S, labs)? Why? @ -None What meds were considered but not given or refused? Why? @ -None Did you discuss the management of the patient with other professionals (professionals i.e. , PA, FAST FOOD SHIFT LEAD, lab, RT, psych nurse, manager social responsibility, experimental box tester, te acher, chief business officer, rn case manager)? Give summary @ -Dr. Brumfield for admission with ID consult Was smoking cessation discussed for >3mins.? @ -No Was critical care preformed (if so, how long)? @ -No Were there social determinants of health that impacted care today? How? (Homelessness, low income, unemployed, alcoholism, drug addiction, transportation, low edu. Level, literacy, decrease access to med. care, half-way, rehab)? @ -No Was there de-escalation of care discussed even if they declined (Discuss DNR or withdrawal of care, Hospice)? DNR status @ -No What co-morbidities impacted this encounter? (DM, HTN, Smoking, COPD, CAD, Cancer, CVA, ARF, Chemo, Hep., AIDS, mental health diagnosis, sleep apnea, morbid obesity)? @ -Diabetes Was patient admitted / discharged? Hospital course, mention meds given and route, prescriptions, significant lab abnormalities, going to OR and other pertinent info. @ -Admitted patient has extensive cellulitis, ulcerations, blistering of his lower extremities concerning for possible underlying fungal infection will have dual antibiotic therapy, ID consult. Undiagnosed new problem with uncertain prognosis? @ -No Drug Therapy requiring intensive monitoring for toxicity (Heparin, Nitro, Insulin, Cardizem)? @ -No Were any procedures done? @ -No Diagnosis/symptom? @ -Cellulitis lower extremity diabetic ulceration Acute, or Chronic, or Acute on Chronic? @ -Acute Uncomplicated (without systemic symptoms) or Complicated (systemic symptoms)? @ -Complication Side effects of treatment? @ -No Exacerbation, Progression, or Severe Exacerbation? @ -No Poses a threat to life or bodily function? How? (Chest pain, [place], HI, pneumonia, PE, COPD, DKA, ARF, appy, cholecystitis, CVA, Diverticulitis, Homicidal, Suicidal, threat to staff... and all critical care pts) @ -Yes possible sepsis, endorgan failure - Lab Data Result diagrams: 02/29/24 09:02/29/24 09: Lab Results 02/29/24 02/29/24 02/29/24 Range/Units 09:28 09:28 09:28 WBC 6.1 (3.8-10.6) k/uL RBC 5.30 (4.30-5.90) m/uL Hgb 15.4 (13.0-17.5) gm/dL Hct 47.7 (39.0-53.0) % MCV 90.0 (80.0-100.0) fL MCH 29.1 (25.0-35.0) pg MCHC 32.3 (31.0-37.0) g/dL RDW 12.8 (11.5-15.5) % Plt Count 226 (150-450) k/uL MPV 7.7 Neutrophils % 62 % Lymphocytes % 24 % Monocytes % 9 % Eosinophils % 2 % Basophils % 0 % Neutrophils # 3.8 (1.3-7.7) k/uL Lymphocytes # 1.5 (1.0-4.8) k/uL Monocytes # 0.5 (0-1.0) k/uL Eosinophils # 0.1 (0-0.7) k/uL Basophils # 0.0 (0-0.2) k/uL Sodium 137 (137-145) mmol/L Potassium 4.1 (3.5-5.1) mmol/L Chloride 102 (98-107) mmol/L Carbon Dioxide 27 (22-30) mmol/L Anion Gap 8 mmol/L BUN 13 (9-20) mg/dL Creatinine 0.81 (0.66-1.25) mg/dL Est GFR (CKD-EPI)AfAm >90 (>60 ml/min/1.73 sqM) Est GFR (CKD-EPI)NonAf >90 (>60 ml/min/1.73 sqM) Glucose 193 H (74-99) mg/dL Plasma Lactic Acid Moncho 0.9 (0.7-2.0) mmol/L Calcium 9.5 (8.4-10.2) mg/dL Magnesium 1.7 (1.6-2.3) mg/dL Total Bilirubin 0.8 (0.2-1.3) mg/dL AST 20 (17-59) U/L ALT 13 (4-49) U/L Alkaline Phosphatase 87 (38-126) U/L Total Protein 7.2 (6.3-8.2) g/dL Albumin 4.5 (3.5-5.0) g/dL Disposition Clinical Impression: Diabetes, Bilateral lower leg cellulitis, Bilateral leg ulcer Disposition: ADMITTED IP TO THIS [facility] Condition: Fair Time of Disposition: 11:02
[2024-02-29] MEDS: SODIUM CHLORIDE 0.9% 1,000 ML IV ONE (09:30)
[2024-02-29] MEDS: KETOROLAC 15 MG/ML 1 ML VIAL IVP STA (09:33)
[2024-02-29] MEDS: CEFEPIME 2 GM in SODIUM CHLORIDE 0.9% 100 ML IVPB SCH (09:38)
[2024-02-29 09:53] LABS: Basophils % (A) 0 %; Eosinophils # (A) 0.1 k/uL (0-0.7); Eosinophils % (A) 2 %; HCT 47.7 % (39.0-53.0); HGB 15.4 gm/dL (13.0-17.5); Lymphocytes # (A) 1.5 k/uL (1.0-4.8); Lymphocytes % (A) 24 %; MCH 29.1 pg (25.0-35.0); MCHC 32.3 g/dL (31.0-37.0); Mean Platelet Volume 7.7; Monocytes # (A) 0.5 k/uL (0-1.0); Monocytes % (A) 9 %; Neutrophils # (A) 3.8 k/uL (1.3-7.7); Neutrophils % (A) 62 %; Platelet Count 226 k/uL (150-450); RDW 12.8 % (11.5-15.5); WBC 6.1 k/uL (3.8-10.6)
[2024-02-29 10:00] LABS: ALT 13 U/L (4-49); AST 20 U/L (17-59); African American GFR (CKD) >90 (>60 ml/min/1.73 sqM); Albumin 4.5 g/dL (3.5-5.0); Alkaline Phosphatase 87 U/L (38-126); Anion Gap 8 mmol/L; Blood Urea Nitrogen 13 mg/dL (9-20); Calcium 9.5 mg/dL (8.4-10.2); Carbon Dioxide 27 mmol/L (22-30); Chloride 102 mmol/L (98-107); Glucose 193 mg/dL (74-99); Magnesium 1.7 mg/dL (1.6-2.3); Non-African American GFR(CKD) >90 (>60 ml/min/1.73 sqM); Potassium 4.1 mmol/L (3.5-5.1); Sodium 137 mmol/L (137-145); Total Bilirubin 0.8 mg/dL (0.2-1.3); Total Protein 7.2 g/dL (6.3-8.2)
[2024-02-29] MEDS: VANCOMYCIN 1,750 MG in SODIUM CHLORIDE 0.9% 500 ML 500 ML IVPB STA (10:14)
[2024-02-29] MEDS ORDERED: HYDROmorphone 0.5 MG/0.5 ML SYRINGE IVP PRN (11:02)
[2024-02-29] MEDS ORDERED: ACETAMINOPHEN TAB 325 MG TAB PO PRN (11:02)
[2024-02-29] MEDS ORDERED: NALOXONE 0.4 MG/ML 1 ML VIAL IV PRN (11:02)
[2024-02-29] MEDS ORDERED: ONDANSETRON 4 MG/2 ML VIAL IVP PRN (11:02)
[2024-02-29] MEDS ORDERED: INSULIN ASPART (NovoLOG) 100 UNIT/ML VIAL SQ PRN ×2 (11:04→11:36)
[2024-02-29] MEDS ORDERED: INSPUCOR MISCELLANE PRN (11:36)
[2024-02-29] MEDS ORDERED: INSULIN PUMP BASAL RATES 1 EACH MISC MISCELLANE PRN (11:36)
[2024-02-29] MEDS: INSULIN LISPRO (For Pump) 100 UNIT/ML VIAL SQ-PUMP SCH (11:49)
[2024-02-29] MEDS: INSULIN PUMP MEAL BOLUS 1 UNIT MISC MISCELLANE SCH (12:13)
[2024-02-29] MEDS: HYDROcodone/APAP 5-325MG 1 EACH TAB PO PRN (13:42)
[2024-02-29] MEDS: VANCOMYCIN 1,750 MG in SODIUM CHLORIDE 0.9% 500 ML 500 ML IVPB SCH (18:17)
[2024-02-29 20:07] LABS: Glucose,Whole Blood 162 mg/dL (70-110)
--- NOTE | 2024-02-29 21:48 | P.CONS ---
History of Present Illness - Reason for Consult Consult date: 02/29/24 Bilateral leg cellulitis possible fungal Requesting physician: Alfred Horowitz - Chief Complaint Bilateral extremity swelling redness x 1 month - History of Present Illness Patient is a 23-year-old male past medical history significant for diabetes mellitus type 1, patient do herbert, presenting to the hospital for evaluation of bilateral lower extremity pain swelling and redness apparently patient has been dealing with this condition for about a month and has been previously evaluated by dermatology and has been diagnosed with a fungal infection treated with terbinafine however the patient continued to have increasing swelling redness to bilateral extremity with a blister formation to the left leg for the patient presented to the hospital patient denies high-grade fever or any chills and no fever has been recorded subsequently patient was nontachycardic hypotensive or hypoxic did have a white count of 6.1 creatinine 0.81 electrolytes are normal liver enzymes are normal patient was started on cefepime and vancomycin infectious disease was consulted for further management of antibiotic therapy concerning for possible fungal dermatitis as mentioned ea rlier symptom has been going on for more than a month did have diffuse swelling to lower extremity with some superficial ulceration from her to blister with a blister to the left leg patient describes the pain to be dull aching to burning moderate intense without radiation hanging the legs do not seem to help as reported by the mother at the bedside no cultures has been done Review of Systems Positive point and negatives has been mentioned in the HPI, complete review of systems was performed and all other systems are negative Past Medical History Past Medical History: Diabetes Mellitus Additional Past Medical History / Comment(s): IDDM type I, History of Any Multi-Drug Resistant Organisms: None Reported Past Surgical History: No Surgical Hx Reported Past Anesthesia/Blood Transfusion Reactions: Unable to Obtain Additional Past Anesthesia/Blood Transfusion Reaction / Comm: Pt has never had surgery. Past Psychological History: No Psychological Hx Reported Smoking Status: Vaper Past Alcohol Use History: None Reported Past Drug Use History: None Reported - Past Family History Mother Family Medical History: No Reported History Father Family Medical History: Hypertension Medications and Allergies Home Medications Medication Instructions Recorded Confirmed Type INSULIN LISPRO (For Pump) [humaLOG 0.01 units SQ-PUMP CONTINUOUS 02/29/24 02/29/24 History (For Pump)] Insulin Glargine,Hum.rec.anlog 40 units SQ DAILY PRN 02/29/24 02/29/24 History [Lantus Solostar Pen] Insulin Lispro [humaLOG Kwikpen] See Protocol SQ ACHS PRN 02/29/24 02/29/24 History Acetaminophen Tab [Tylenol] 650 mg PO Q6HR PRN tab 03/03/24 Rx Cephalexin [Keflex] 500 mg PO Q8HR 7 Days #21 cap 03/03/24 Rx HYDROcodone/APAP 7.5-325MG [[place] 1 each PO Q4H PRN #6 tab 03/03/24 Rx 7.5-325] Allergies Allergy/AdvReac Type Severity Reaction Status Date / Time azithromycin Allergy Rash/Hives Verified 02/29/24 10:09 levofloxacin [From Levaquin] Allergy Tongue Verified 02/29/24 10:09 itched Penicillins Allergy Rash/Hives Verified 02/29/24 10:09 gabapentin AdvReac Swelling/Ed Verified 02/29/24 10:09 dell pregabalin [From Lyrica] AdvReac Swelling/Ed Verified 02/29/24 10:09 dell Physical Exam Vitals: Vital Signs Temp Pulse Resp BP Pulse Ox 02/29/24 11:02 88 18 124/72 99 02/29/24 10:20 98.6 F 81 16 130/83 100 02/29/24 09:00 98.5 F 107 H 18 133/78 98 Intake and Output 02/28/24 02/29/24 02/29/24 22:59 06:59 14:59 Other: Weight 104.326 kg GENERAL DESCRIPTION: Young male lying in bed, no distress. No tachypnea or accessory muscle of respiration use. HEENT: Shows Pallor , no scleral icterus. Oral mucous membrane is dry. No pharyngeal erythema or thrush NECK: Trachea central, no thyromegaly. LUNGS: Unlabored breathing. Clear to auscultation anteriorly. No wheeze or crackle. HEART: S1, S2, regular rate and rhythm. No loud murmur ABDOMEN: Soft, no tenderness , guarding or rigidity, no organomegaly EXTREMITIES: Bilateral lower extremity few swelling redness with a blister formation to the left leg he also have a dry crusted skin to bilateral feet and some superficial ulceration no purulent drainage SKIN: No rash, no masses palpable. NEUROLOGICAL: The patient is awake, alert, oriented x3, mood and affect normal. Results CBC & Chem 7: 03/01/24 09:03 03/02/24 09:06 Labs: Abnormal Lab Results - Last 24 Hours (Table) 02/29/24 Range/Units 09:28 Glucose 193 H (74-99) mg/dL Assessment and Plan (1) Allergy to multiple antibiotics Status: Acute Code(s): Z88.1 - ALLERGY STATUS TO OTHER ANTIBIOTIC AGENTS SNOMED Code(s): 436508732 (2) Bilateral lower leg cellulitis Status: Acute Code(s): L03.116 - CELLULITIS OF LEFT LOWER LIMB; L03.115 - CELLULITIS OF RIGHT LOWER LIMB SNOMED Code(s): 526374015 Plan: 1patient presented hospital with bilateral lower extremity erythema some superficial ulceration from ruptured blister and did have a large blister to the left leg concerning for cellulitis failing therapy of terbinafine clinical doubt fungal dermatitis concerning for possible venous stasis dermatitis and a component of bacterial cellulitis 2-patient with multiple antibiotic ALLERGIES that would limit the number of antibiotic safe to use 3-we will obtain cultures from the superficial ulceration 4-patient to continue with cefepime and vancomycin while waiting for the culture to finalize 5-wound care consult for local wound care We will follow on clinical condition and cultures to further adjust medication if needed Thank you for this consultation we will follow the patient along with you Dictation was produced using [employer] dictation software. please excuse any grammatical, word or spelling errors. Time with Patient: Greater than 30
--- NOTE | 2024-03-01 00:18 | P.HPIM ---
History of Present Illness H&P Date: 02/29/24 Chief Complaint: Leg swelling and pain and blisters Patient is a 23-year-old male with a past medical history of diabetes type 1 on insulin pump presents to ER with complaints of bilateral respiratory pain swelling and redness and blister formation. Patient states he has been dealing with this condition for almost about a month and was also evaluated by dermatology he was diagnosed with fungal infection treated with terbinafine however the patient continued to have increased swelling and redness of bilateral extremities with blister formation of the left leg especially and bruising purulent and serosanguineous discharge. Otherwise patient denies any fever or chills. No nausea vomiting abdominal pain or diarrhea. No cough or sputum production. Laboratory test showed WBC 6.0 hemoglobin 15.4 and platelets 226 sodium 137 potassium 4.1 chloride 102 bicarb is 27 BUN 13 and creatinine 0.81 and blood sugar is 193 liver enzymes are not elevated. Review of Systems Constitutional: Patient denies any fever or chills . No generalized weakness or weight loss. Abdomen: Patient denied nausea vomiting and diarrhea and abdominal pain. Cardiovascular: Patient denies any chest pain or short of breath no palpitations. Respiratory: patient denied any cough or sputum production. No shortness of breath Neurologic: Patient denied any numbness or tingling. no headache. Musculoskeletal: Patient denies any complaints of joint swelling or deformity. Leg swelling and blisters and ulcers and pain. Skin: Blisters on the left lower extremity Psychiatric: Negative Endocrine: No heat or cold intolerance. No recent weight gain. Genitourinary: No dysuria or hematuria. All other 14 point ROS negative except the above Past Medical History Past Medical History: Diabetes Mellitus Additional Past Medical History / Comment(s): IDDM type I, History of Any Multi-Drug Resistant Organisms: None Reported Past Surgical History: No Surgical Hx Reported Past Anesthesia/Blood Transfusion Reactions: Unable to Obtain Additional Past Anesthesia/Blood Transfusion Reaction / Comment(s): Pt has never had surgery. Past Psychological History: No Psychological Hx Reported Smoking Status: Vaper Past Alcohol Use History: None Reported Past Drug Use History: None Reported - Past Family History Mother Family Medical History: No Reported History Father Family Medical History: Hypertension Medications and Allergies Home Medications Medication Instructions Recorded Confirmed Type INSULIN LISPRO (For Pump) [humaLOG 0.01 units SQ-PUMP CONTINUOUS 02/29/24 0 02/29/24 History (For Pump)] Insulin Glargine,Hum.rec.anlog 40 units SQ DAILY PRN 02/29/24 02/29/24 History [Lantus Solostar Pen] Insulin Lispro [humaLOG Kwikpen] See Protocol SQ ACHS PRN 02/29/24 02/29/24 History Allergies Allergy/AdvReac Type Severity Reaction Status Date / Time azithromycin Allergy Rash/Hives Verified 02/29/24 10:09 levofloxacin [From Levaquin] Allergy Tongue Verified 02/29/24 10:09 itched Penicillins Allergy Rash/Hives Verified 02/29/24 10:09 gabapentin AdvReac Swelling/Ed Verified 02/29/24 10:09 dell pregabalin [From Lyrica] AdvReac Swelling/Ed Verified 02/29/24 10:09 dell Physical Exam Vitals: Vital Signs Temp Pulse Resp BP Pulse Ox 02/29/24 14:04 98.5 F 81 18 125/85 97 02/29/24 13:15 85 17 128/72 99 02/29/24 12:08 98.5 F 75 17 136/81 99 02/29/24 11:02 88 18 124/72 99 02/29/24 10:20 98.6 F 81 16 130/83 100 02/29/24 09:00 98.5 F 107 H 18 133/78 98 Intake and Output 02/28/24 02/29/24 02/29/24 22:59 06:59 14:59 Other: Weight 104.326 kg PHYSICAL EXAMINATION: Patient is lying in the bed comfortably, no acute distress, awake alert and oriented.. HEENT: Normocephalic. Neck is supple. Pupils reactive. Nostrils clear. Oral cavity is moist. Neck reveals no JVD, carotid bruits, or thyromegaly. CHEST EXAMINATION: Trachea is central. Symmetrical expansion. Lung pinto clear to auscultation and percussion. CARDIAC: Normal S1, S2 with no gallops. No murmurs ABDOMEN: Soft. Bowel sounds normal. No organomegaly. No abdominal bruits. Extremities: Patient does have bilateral lower extremity significant swelling and diabetic ulcers and also left lower extremity blisters and oozing serous fluid.. No clubbing or cyanosis Neurologically awake, alert, oriented x3 with well-coordinated movements. No focal deficits noted Skin: No rash or skin lesions. Psychiatric: Coperative. Nonsuicidal Musculoskeletal: No joint swelling or deformity. Normal range of motion. Results CBC & Chem 7: 03/01/24 09:03 03/01/24 11:55 Labs: Abnormal Lab Results - Last 24 Hours (Table) 02/29/24 Range/Units 09:28 Glucose 193 H (74-99) mg/dL Thrombosis Risk Factor Assmnt - DVT/VTE Prophylaxis DVT/VTE Prophylaxis: Pharmacologic Prophylaxis ordered Assessment and Plan Assessment: Bilateral lower extremity swelling, cellulitis and diabetic ulcers and blister formation on the left lower leg. Patient was recently treated for fungal dermatitis with epinephrine was seen by dermatology as an outpatient. Final component of bacterial cellulitis. Diabetes type 1 insulin-dependent GI and DVT prophylaxis Plan: Patient will be continued on antibiotics vancomycin and ceftriaxone. Patient is allergic to multiple antibiotics. Wound care is consulted and ID evaluation. Continue with insulin pump and sliding scale as needed. Follow-up closely. Continue with pain management. Follow-up culture reports. Time with Patient: Greater than 30
[2024-03-01 06:13] LABS: Glucose,Whole Blood 107 mg/dL (70-110)
[2024-03-01] MEDS: KETOROLAC 15 MG/ML 1 ML VIAL IVP PRN (08:54)
[2024-03-01] MEDS ORDERED: INSULIN DETEMIR (LEVEMIR) 100 UNIT/ML SYR SQ PRN (09:00)
[2024-03-01 09:07] LABS: Basophils % (A) 0 %; Eosinophils # (A) 0.2 k/uL (0-0.7); Eosinophils % (A) 2 %; HCT 46.3 % (39.0-53.0); HGB 15.5 gm/dL (13.0-17.5); Lymphocytes # (A) 1.7 k/uL (1.0-4.8); Lymphocytes % (A) 22 %; MCH 30.5 pg (25.0-35.0); MCHC 33.4 g/dL (31.0-37.0); MCV 91.3 fL (80.0-100.0); Mean Platelet Volume 8.4; Monocytes # (A) 0.7 k/uL (0-1.0); Monocytes % (A) 10 %; Neutrophils # (A) 4.8 k/uL (1.3-7.7); Neutrophils % (A) 64 %; Platelet Count 201 k/uL (150-450); RBC 5.07 m/uL (4.30-5.90); RDW 12.9 % (11.5-15.5); WBC 7.5 k/uL (3.8-10.6)
--- NOTE | 2024-03-01 10:14 | P.CONS ---
History of Present Illness - Reason for Consult Consult date: 03/01/24 wound care - History of Present Illness This is a 23-year-old male with past medical history significant for type 1 diabetes. Patient developed redness and blistering to lower extremities he was followed with dermatology who diagnosed him with a fungal infection and started him on an antifungal medication. After a month of the medication the immigration judge's instructed him to get a second opinion at either [facility] or [facility]. Due to transportation concerns patient was unable to make any appointments at those facilities. Patient has increased redness and swelling noted to bilateral lower extremities that brought him to the emergency room for evaluation. Patient has multiple open ulcerations to bilateral lower ex tremities anterior and posterior from the knees to the feet. Patient also has blistering and drainage that is serous in appearance to multiple areas of the lower extremities. Patient denies a diagnosis of venous insufficiency. He has not had any venous Dopplers done in the past. Patient states that he has history of neuropathy and finds that it is comfortable for him to have his legs dependent with a fan blowing on them. Patient states that he has tried compression in the past but he is unable to tolerate anything on his legs due to his neuropathy. Ulcerations have significant amount of slough and nonviable tissue present no granulation noted. 2+ pitting edema noted to bilateral lower extremities. Review Of Systems: Constitutional: No fever, no chills, no night sweats. No weight change. No weakness, fatigue or lethargy. No daytime sleepiness. Integumentary:reports wounds, no lesions. No rash or pruritus. No unusual bruising. No change in hair or nails. Physical exam: General Appearance: Alert, cooperative, no distress, appears stated age. Skin: See HPI all other Skin color, texture, tugor normal, no rashes or lesions. Neurologic: Alert oriented x3 Assessment: 1. Nonhealing ulceration with fat layer exposure multiple sites right lower extremity 2. Nonhealing ulceration of the with fat layer exposure multiple sites left lower extremity 3. Diabetes with skin ulceration 4. Chronic venous hypertension with ulcerations and inflammation of bilateral lower extremities. Plan: 1. Bilateral venous Doppler ordered to rule out venous insufficiency. Apply absorptive silver moistened, zinc barrier cream to intact skin, wrap with rolled gauze and secure with tape. Wrap with Lan wrap for compression. Elevate legs over heart for 30 minutes 3 times a day. Avoid sitting with legs dependent. Patient would benefit from advanced wound care and wound care setting. We have happy to see him upon discharge. Thank you for the consultation any questions please contact the wound care center DNP note has been reviewed and discussed with Dr. Hardy and the impression and plan of care has been directed as dictated. Past Medical History Past Medical History: Diabetes Mellitus Additional Past Medical History / Comment(s): IDDM type I, History of Any Multi-Drug Resistant Organisms: None Reported Past Surgical History: No Surgical Hx Reported Past Anesthesia/Blood Transfusion Reactions: Unable to Obtain Additional Past Anesthesia/Blood Transfusion Reaction / Comm: Pt has never had s urgery. Past Psychological History: No Psychological Hx Reported Smoking Status: Vaper Past Alcohol Use History: None Reported Past Drug Use History: None Reported - Past Family History Mother Family Medical History: No Reported History Father Family Medical History: Hypertension Medications and Allergies Home Medications Medication Instructions Recorded Confirmed Type INSULIN LISPRO (For Pump) [humaLOG 0.01 units SQ-PUMP CONTINUOUS 02/29/24 02/29/24 History (For Pump)] Insulin Glargine,Hum.rec.anlog 40 units SQ DAILY PRN 02/29/24 02/29/24 History [Lantus Solostar Pen] Insulin Lispro [humaLOG Kwikpen] See Protocol SQ ACHS PRN 02/29/24 02/29/24 History Allergies Allergy/AdvReac Type Severity Reaction Status Date / Time azithromycin Allergy Rash/Hives Verified 02/29/24 10:09 levofloxacin [From Levaquin] Allergy Tongue Verified 02/29/24 10:09 itched Penicillins Allergy Rash/Hives Verified 02/29/24 10:09 gabapentin AdvReac Swelling/Ed Verified 02/29/24 10:09 dell pregabalin [From Lyrica] AdvReac Swelling/Ed Verified 02/29/24 10:09 dell Physical Exam Vitals: Vital Signs Temp Pulse Pulse Resp BP BP Pulse Ox 03/01/24 08:00 97.6 F 70 20 130/73 100 03/01/24 02:00 97.4 F L 62 15 121/80 100 02/29/24 20:19 63 20 02/29/24 19:42 97.5 F L 63 20 127/79 100 02/29/24 18:21 98.5 F 16 121/89 99 02/29/24 16:15 98.4 F 68 17 120/90 99 02/29/24 15:02 89 17 123/72 97 02/29/24 14:04 98.5 F 81 18 125/85 97 02/29/24 13:15 85 17 128/72 99 02/29/24 12:08 98.5 F 75 17 136/81 99 02/29/24 11:02 88 18 124/72 99 02/29/24 10:20 98.6 F 81 16 130/83 100 Intake and Output 02/29/24 03/01/24 03/01/24 22:59 06:59 14:59 Intake Total 1560 Output Total 300 Balance -300 1560 Intake: Intake, IV Titration 600 Amount Cefepime 2 gm In Sodium 100 Chloride 0.9% 100 ml @ 25 mls/hr IVPB Q12HR [facility] Rx #:[id number] Vancomycin 1,750 mg In 500 Sodium Chloride 0.9% 500 ml 500 ml @ 167 mls/hr IVPB Q8H [facility] Rx#: [id number] Oral 960 Output: Urine 300 Other: Voiding Method Toilet # Voids 3 Weight 104.326 kg Results CBC & Chem 7: 03/01/24 09:03 02/29/24 09:28 Labs: Abnormal Lab Results - Last 24 Hours (Table) 02/29/24 Range/Units 20:05 POC Glucose (mg/dL) 162 H (70-110) mg/dL Assessment and Plan (1) Non-pressure ulcer of left lower extremity with fat layer exposed Current Visit: Yes Status: Acute Code(s): L97.922 - NON-PRS [facility] UL UNSP PRT OF L LOW LEG W FAT LAYER EXPOSED SNOMED Code(s): 55728779 (2) Non-pressure ulcer of right lower extremity with fat layer exposed Current Visit: Yes Status: Acute Code(s): L97.912 - NON-PRS [facility] UL UNSP PRT OF R LOW LEG W FAT LAYER EXPOSED SNOMED Code(s): 75077788 (3) Type 2 diabetes mellitus with other skin ulcer Current Visit: Yes Status: Acute Code(s): E11.622 - TYPE 2 DIABETES MELLITUS WITH OTHER SKIN ULCER; L98.499 - NON-PRESSURE CHRONIC ULCER OF SKIN OF SITES W UNSP SEVERITY SNOMED Code(s): 952730158471532 (4) Chronic venous hypertension (idiopathic) with ulcer and inflammation of bilateral lower extremity Current Visit: Yes Status: Acute Code(s): I87.333 - CHRONIC VENOUS HTN W ULCER AND INFLAM OF BILATERAL LOW EXTRM SNOMED Code(s): 001348757211228
[2024-03-01] MEDS: ZINC OXIDE PASTE (Z-GUARD) 1 APPLIC TOPICAL SCH (10:42)
--- NOTE | 2024-03-01 11:03 | US ---
EXAMINATION TYPE: US venous doppler duplex LE DATE OF EXAM: 03/01/2024 10:06 AM COMPARISON: NONE CLINICAL INDICATION: Male, 23 years old with history of venous Insufficiency; Bilateral lower extremi ty swelling, blistering, and open wounds. Patient is a type one diabetic SIDE PERFORMED: Bilateral TECHNIQUE: The lower extremity deep venous system is examined utilizing real time linear array sonog damian with graded compression, doppler sonography and color-flow sonography. VESSELS IMAGED: Common Femoral Vein Deep Femoral Vein Greater Saphenous Vein * Femoral Vein Popliteal Vein Small Saphenous Vein * Proximal Calf Veins (* superficial vessels) Right Leg: Negative for DVT Left Leg: Negative for DVT No evidence of insufficiency. IMPRESSION: Grayscale, color doppler, spectral doppler imaging performed of the deep veins of the lo wer extremities. There is normal flow, compressibility, vascular waveforms.
--- NOTE | 2024-03-01 12:29 | P.PN ---
Subjective Progress Note Date: 03/01/24 Principal diagnosis: Reason for follow-up is bilateral lower extremity wound and cellulitis Patient is a 23-year-old male past medical history significant for diabetes mellitus type 1, patient do herbert, presenting to the hospital for evaluation of bilateral lower extremity pain swelling and redness that has been going on for about a month failing outpatient oral terbinafine admitted to hospital concerning for cellulitis. On today's evaluation that is 03/01/2024,the patient remains to be afebrile, patient is on room air not requiring supplemental oxygen and denies any shortness of breath no chest pain or cough.Patient denies having any nausea or vomiting, no abdominal pain still complaining of burning pain to the lower extremity some improvement with the pain medication. Patient white count is 7.5 cultures currently pending Objective - Vital Signs Vital signs: Vital Signs Temp 97.6 F 03/01/24 08:00 Pulse 70 03/01/24 08:00 Resp 20 03/01/24 08:00 BP 130/73 03/01/24 08:00 Pulse Ox 100 03/01/24 08:00 FiO2 Intake & Output 02/29/24 03/01/24 03/01/24 18:59 06:59 18:59 Intake Total 1560 Output Total 300 Balance -300 1560 Weight 104.326 kg Intake: Intake, IV Titration 600 Amount Cefepime 2 gm In Sodium 100 Chloride 0.9% 100 ml @ 25 mls/hr IVPB Q12HR [facility] Rx #:[id number] Vancomycin 1,750 mg In 500 Sodium Chloride 0.9% 500 ml 500 ml @ 167 mls/hr IVPB Q8H [facility] Rx#: [id number] Oral 960 Output: Urine 300 Other: Voiding Method Toilet # Voids 3 - Exam GENERAL DESCRIPTION: Young male up in bed in no distress RESPIRATORY SYSTEM: Unlabored breathing , decreased breath sounds at bases HEART: S1 S2 regular rate and rhythm , ABDOMEN: Soft , no tenderness EXTREMITIES: Bilateral extremity with erythema slightly decreased did have blister to the left leg superficial ulceration no drainage - Labs CBC & Chem 7: 03/01/24 09:03 02/29/24 09:28 Labs: Abnormal Lab Results - Last 24 Hours (Table) 02/29/24 Range/Units 20:05 POC Glucose (mg/dL) 162 H (70-110) mg/dL Assessment and Plan (1) Allergy to multiple antibiotics Current Visit: Yes Status: Acute Code(s): Z88.1 - ALLERGY STATUS TO OTHER ANTIBIOTIC AGENTS SNOMED Code(s): 991423441 (2) Bilateral lower leg cellulitis Current Visit: Yes Status: Acute Code(s): L03.116 - CELLULITIS OF LEFT LOWER LIMB; L03.115 - CELLULITIS OF RIGHT LOWER LIMB SNOMED Code(s): 313635031 Plan: 1patient presented to the hospital with bilateral lower extremity erythema some superficial ulceration from ruptured blister and did have a large dressing to the left leg concerning for cellulitis failing therapy of terbinafine clinical doubt fungal dermatitis concerning for possible venous stasis dermatitis and a component of bacterial cellulitis 2-patient with multiple antibiotic ALLERGIES that would limit the number of antibiotic safe to use 3-cultures are currently pending continue current wound care per the wound care team 4-patient to continue with t cefepime and vancomycin while waiting for the culture to finalize Mother at the bedside questions were answered Dictation was produced using [employer] dictation software. please excuse any grammatical, word or spelling errors. Time with Patient: Less than 30
[2024-03-01 13:06] LABS: African American GFR (CKD) >90 (>60 ml/min/1.73 sqM); Anion Gap 5 mmol/L; Blood Urea Nitrogen 11 mg/dL (9-20); Calcium 8.8 mg/dL (8.4-10.2); Carbon Dioxide 26 mmol/L (22-30); Chloride 106 mmol/L (98-107); Glucose 200 mg/dL (74-99); Non-African American GFR(CKD) >90 (>60 ml/min/1.73 sqM); Potassium 4.2 mmol/L (3.5-5.1); Sodium 137 mmol/L (137-145)
[2024-03-01 16:55] LABS: Glucose,Whole Blood 62 mg/dL (70-110)
[2024-03-01 17:18] LABS: Glucose,Whole Blood 73 mg/dL (70-110)
[2024-03-01 20:18] LABS: Glucose,Whole Blood 194 mg/dL (70-110)
[2024-03-01] MEDS: HYDROcodone/APAP 7.5-325MG 1 EACH TAB PO PRN (22:09)
[2024-03-02 07:25] LABS: Glucose,Whole Blood 114 mg/dL (70-110)
[2024-03-02] MEDS: VANCOMYCIN TROUGH DUE 1 EACH MISC MISCELLANE ONE (09:12)
[2024-03-02 09:33] LABS: African American GFR (CKD) >90 (>60 ml/min/1.73 sqM); Anion Gap 10 mmol/L; Blood Urea Nitrogen 8 mg/dL (9-20); Calcium 9.1 mg/dL (8.4-10.2); Carbon Dioxide 22 mmol/L (22-30); Chloride 109 mmol/L (98-107); Glucose 123 mg/dL (74-99); Non-African American GFR(CKD) >90 (>60 ml/min/1.73 sqM); Sodium 141 mmol/L (137-145)
[2024-03-02 09:46] LABS: Potassium 4.2 mmol/L (3.5-5.1)
[2024-03-02 11:59] LABS: Glucose,Whole Blood 118 mg/dL (70-110)
[2024-03-02] MEDS: diazePAM 5 MG TAB PO PRN (12:14)
[2024-03-02] MEDS: HYDROcodone/APAP 7.5-325MG 1 EACH TAB PO PRN (14:26)
--- NOTE | 2024-03-02 15:35 | P.PN ---
Subjective Progress Note Date: 03/02/24 Patient is a 23-year-old male with a past medical history of diabetes type 1 on insulin pump presents to ER with complaints of bilateral respiratory pain swelling and redness and blister formation. Patient states he has been dealing with this condition for almost about a month and was also evaluated by [facility] he was diagnosed with fungal infection treated with terbinafine however the patient continued to have increased swelling and redness of bilateral extremities with blister formation of the left leg especially and bruising purulent and serosanguineous discharge. Otherwise patient denies any fever or chills. No nausea vomiting abdominal pain or diarrhea. No cough or sputum production. Laboratory test showed WBC 6.0 hemoglobin 15.4 and platelets 226 sodium 137 potassium 4.1 chloride 102 bicarb is 27 BUN 13 and creatinine 0.81 and blood sugar is 193 liver enzymes are not elevated. 03/02/2024 Patient is seen and evaluated in follow-up currently maintained on IV antibiotics with infectious disease following closely. Preliminary cultures thus far showing presumptive Staph aureus and awaiting finalized cultures to determine discharge antibiotics. 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 Nursing staff have attempted to move the patient to another room although now patient is refusing. Discussed with the patient about leaving AGAINST MEDICAL ADVICE and risk versus benefits and encouraged the patient to stay for finalized cultures to determine if patient will require IV antibiotics and/or oral therapy. Continue with local wound care and again instructed the patient to elevate lower extremities. Patient on each exam has been sitting up at the side of the bed with bilateral lower extremities dependent and continues with swelling and redness. Significant amount of paste and cream noted on the lower extremities with sloughing and odor noted. Patient is afebrile with no reports of chest pain or shortness of breath. Patient has no white count and BMP within normal limits. Blood sugars have been well-controlled and will continue current regimen. Adjust medications for pain and will add low-dose Valium as needed. Review of systems: Constitutional: No reports of fatigue, fever, or chills Cardiovascular: No reports of chest pain or palpitations Respiratory: No reports of shortness of breath or cough GI: No reports of nausea, vomiting, or diarrhea : No reports of dysuria or retention Neurovascular: No reports of weakness or numbness, reports of bilateral lower extremity pain and swelling All medications have been reviewed Physical exam: Gen: This is a 23-year-old male who is awake, alert and oriented x 3, well- developed, ill-appearing, obese HEENT: Head is atraumatic, normocephalic. Pupils equal, round. Sclerae is anicteric. NECK: Supple. No JVD. No lymphadenopathy. No thyromegaly. LUNGS: Diminished breath sounds bilaterally otherwise clear to auscultation. No wheezes or rhonchi. No intercostal retractions. HEART: S1, S2 are muffled ABDOMEN: Soft. Bowel sounds are present. No masses. No tenderness. EXTREMITIES: Bilateral lower extremity edema noted with sloughing and excoriation with blisters. No calf tenderness. NEUROLOGICAL: Patient is awake, alert and oriented x3. Cranial nerves 2 through 12 are grossly intact. Assessment: Bilateral lower extremity swelling, cellulitis and diabetic ulcers and blister formation on the left lower leg. Present on admission. Patient was recently treated for fungal dermatitis with epinephrine was seen by dermatology as an outpatient. Preliminary culture showing presumptive staph and awaiting finalized cultures Diabetes type 1 insulin-dependent, uncontrolled with hyperglycemia Obesity with a BMI of 32.1 Vaping GI and DVT prophylaxis Full code Plan: Patient will be continued on antibiotics in the form of vancomycin and ceftriaxone. Infectious disease following and preliminary culture showing presumptive staph. Blood cultures remain negative. Patient is allergic to multiple antibiotics. Continue with local wound care to lower extremities, wound care is consulted Continue monitoring Accu-Cheks ACHS and will continue with insulin pump and sliding scale as needed. Follow-up closely. Continue with pain management. Adjust medications accordingly. Will add low-dose Valium Encouraged the patient to elevate lower extremities while at rest and patient reports he is unable to do so it is extremely uncomfortable and remains sitting at the side of the bed with bilateral lower extremities dependent Minimal improvement noted with significant amounts zinc paste. Would recommend thoroughly cleansing the area and showering for wound care evaluation Patient and mother were asking if they could discharge and follow-up on the cultures and discussed with them as well as infectious disease and given the extent of the cellulitis, patient would have to leave AGAINST MEDICAL ADVICE. Culture should finalized sometime after 2 PM tomorrow. Will discuss with case management as well regarding discharge planning in the event patient may need IV antibiotics on discharge Due to multiple complex medical issues, overall prognosis is guarded Possible discharge in the next 24 hours The impression and plan of care has been dictated by Rossy Burton, Nurse Practitioner as directed. Dr. Octaviano MD I have performed a history and examination and MDM of this patient, discussed the same with the dictator, and agree with the dictator's assessment and plan a s written ,documented as a scribe. Based on total visit time, I have performed more than 50% of the visit. Objective - Vital Signs Vital signs: Vital Signs Temp 98.4 F 03/02/24 11:54 Pulse 71 03/02/24 11:54 Resp 18 03/02/24 11:54 BP 150/84 03/02/24 11:54 Pulse Ox 99 03/02/24 11:54 FiO2 Intake & Output 03/01/24 03/02/24 03/02/24 18:59 06:59 18:59 Other: Voiding Method Toilet Toilet Toilet # Voids 1 - Labs CBC & Chem 7: 03/01/24 09:03 03/02/24 09:06 Labs: Abnormal Lab Results - Last 24 Hours (Table) 03/01/24 03/01/24 03/02/24 Range/Units 16:53 20:17 07:24 Chloride (98-107) mmol/L BUN (9-20) mg/dL Creatinine (0.66-1.25) mg/dL Glucose (74-99) mg/dL POC Glucose (mg/dL) 62 L 194 H 114 H (70-110) mg/dL 03/02/24 03/02/24 Range/Units 09:06 11:58 Chloride 109 H (98-107) mmol/L BUN 8 L (9-20) mg/dL Creatinine 0.51 L (0.66-1.25) mg/dL Glucose 123 H (74-99) mg/dL POC Glucose (mg/dL) 118 H (70-110) mg/dL Microbiology - Last 24 Hours (Table) 03/01/24 01:00 Gram Stain - Preliminary Leg - Left Wound Culture - Preliminary Presumptive Staph aureus 02/29/24 09:28 Blood Culture - Preliminary Blood 02/29/24 09:15 Blood Culture - Preliminary Blood
--- NOTE | 2024-03-02 16:04 | P.PN ---
Subjective Progress Note Date: 03/02/24 Principal diagnosis: Reason for follow-up is bilateral lower extremity wound and cellulitis Patient is a 23-year-old male past medical history significant for diabetes mellitus type 1, patient do herbert, presenting to the hospital for evaluation of bilateral lower extremity pain swelling and redness that has been going on for about a month failing outpatient oral terbinafine admitted to hospital concerning for cellulitis. On today's evaluation that is 03/02/2024, the patient continues to be afebrile, the patient is on room air and breathing comfortably, the Pt denies having any chest pain or cough, the patient denies having any abdominal pain no vomiting or any diarrhea still complaining of discomfort in the lower extremity and mention unable to keep his legs up. Patient creatinine 0.51 Vanco trough is 20.3 culture with presumptive Staph aureus Objective - Vital Signs Vital signs: Vital Signs Temp 98.0 F 03/02/24 07:23 Pulse 71 03/02/24 07:23 Resp 18 03/02/24 07:23 BP 145/84 03/02/24 07:23 Pulse Ox 99 03/02/24 07:23 FiO2 Intake & Output 03/01/24 03/02/24 03/02/24 18:59 06:59 18:59 Other: Voiding Method Toilet Toilet Toilet # Voids 1 - Exam GENERAL DESCRIPTION: Young male up in bed in no distress RESPIRATORY SYSTEM: Unlabored breathing , decreased breath sounds at bases HEART: S1 S2 regular rate and rhythm , ABDOMEN: Soft , no tenderness EXTREMITIES: Bilateral extremity with erythema slightly decreased did have blister to the left leg superficial ulceration no drainage - Labs CBC & Chem 7: 03/01/24 09:03 03/02/24 09:06 Labs: Abnormal Lab Results - Last 24 Hours (Table) 03/01/24 03/01/24 03/01/24 Range/Units 11:55 16:53 20:17 Chloride (98-107) mmol/L BUN (9-20) mg/dL Creatinine 0.57 L (0.66-1.25) mg/dL Glucose 200 H (74-99) mg/dL POC Glucose (mg/dL) 62 L 194 H (70-110) mg/dL 03/02/24 03/02/24 Range/Units : 09:06 Chloride 109 H (98-107) mmol/L BUN 8 L (9-20) mg/dL Creatinine 0.51 L (0.66-1.25) mg/dL Glucose 123 H (74-99) mg/dL POC Glucose (mg/dL) 114 H (70-110) mg/dL Microbiology - Last 24 Hours (Table) 02/29/24 09:28 Blood Culture - Preliminary Blood 02/29/24 09:15 Blood Culture - Preliminary Blood 03/01/24 01:00 Gram Stain - Preliminary Leg - Left Assessment and Plan (1) Allergy to multiple antibiotics Current Visit: Yes Status: Acute Code(s): Z88.1 - ALLERGY STATUS TO OTHER ANTIBIOTIC AGENTS SNOMED Code(s): 849376038 (2) Bilateral lower leg cellulitis Current Visit: Yes Status: Acute Code(s): L03.116 - CELLULITIS OF LEFT LOWER LIMB; L03.115 - CELLULITIS OF RIGHT LOWER LIMB SNOMED Code(s): 528665651 Plan: 1patient presented to the hospital with bilateral lower extremity erythema some superficial ulceration from ruptured blister and did have a large dressing to the left leg concerning for cellulitis failing therapy of terbinafine clinical doubt fungal dermatitis concerning for possible venous stasis dermatitis and a component of bacterial cellulitis 2-patient with multiple antibiotic ALLERGIES that would limit the number of antibiotic safe to use 3-cultures currently growing presumptive Staph aureus with sensitivities pending 4-patient to continue with cefepime and vancomycin while waiting for the culture to finalize to determine discharge antibiotics discussed with INSTRUMENT PANEL ASSEMBLER for admitting team Mother at the bedside questions were answered Dictation was produced using [employer] dictation software. please excuse any grammatical, word or spelling errors. Time with Patient: Less than 30
[2024-03-02 17:00] LABS: Glucose,Whole Blood 128 mg/dL (70-110)
[2024-03-02] MEDS: VANCOMYCIN 1,500 MG in SODIUM CHLORIDE 0.9% 500 ML 500 ML IVPB SCH (18:25)
[2024-03-02 19:49] VITALS: RESP 16
[2024-03-02 20:08] LABS: Glucose,Whole Blood 142 mg/dL (70-110)
[2024-03-03 07:06] LABS: Glucose,Whole Blood 114 mg/dL (70-110)
[2024-03-03 11:52] LABS: Glucose,Whole Blood 141 mg/dL (70-110)
[2024-03-03 13:58] VITALS: BP 132/85; PULSE 69; TEMP 97.8
--- NOTE | 2024-03-03 15:03 | P.PN ---
Subjective Progress Note Date: 03/03/24 Principal diagnosis: Reason for follow-up is bilateral lower extremity wound and cellulitis Patient is a 23-year-old male past medical history significant for diabetes mellitus type 1, patient do herbert, presenting to the hospital for evaluation of bilateral lower extremity pain swelling and redness that has been going on for about a month failing outpatient oral terbinafine admitted to hospital concerning for cellulitis. On today's evaluation that is 03/03/2024, Patient is afebrile patient is currently on room air and denies having any shortness of breath, the patient denies any chest pain or cough, the patient denies any nausea vomiting did not have any abdominal pain and no diarrhea, circling her discomfort the lower extremity however the patient has been sitting up in the bed with the leg hanging down no worsening pain though. Patient denies any lab draw today cultures with Staph aureus sensitivities pending Objective - Vital Signs Vital signs: Vital Signs Temp 98.3 F 03/03/24 07:06 Pulse 74 03/03/24 07:06 Resp 16 03/03/24 07:06 BP 138/82 03/03/24 07:06 Pulse Ox 100 03/03/24 07:06 FiO2 Intake & Output 03/02/24 03/03/24 03/03/24 18:59 06:59 18:59 Other: Voiding Method Toilet Toilet Toilet # Voids 3 2 - Exam GENERAL DESCRIPTION: Young male up in bed in no distress RESPIRATORY SYSTEM: Unlabored breathing , decreased breath sounds at bases HEART: S1 S2 regular rate and rhythm , ABDOMEN: Soft , no tenderness EXTREMITIES: Bilateral extremity with erythema slightly decreased did have blist er to both legs no drainage - Labs CBC & Chem 7: 03/01/24 09:03 03/02/24 09:06 Labs: Abnormal Lab Results - Last 24 Hours (Table) 03/02/24 03/02/24 03/02/24 Range/Units 11:58 16:59 20:03 POC Glucose (mg/dL) 118 H 128 H 142 H (70-110) mg/dL 03/03/24 Range/Units 07:04 POC Glucose (mg/dL) 114 H (70-110) mg/dL Microbiology - Last 24 Hours (Table) 02/29/24 09:28 Blood Culture - Preliminary Blood 02/29/24 09:15 Blood Culture - Preliminary Blood 03/01/24 01:00 Gram Stain - Preliminary Leg - Left Wound Culture - Preliminary Presumptive Staph aureus Assessment and Plan (1) Allergy to multiple antibiotics Current Visit: Yes Status: Acute Code(s): Z88.1 - ALLERGY STATUS TO OTHER ANTIBIOTIC AGENTS SNOMED Code(s): 828310974 (2) Bilateral lower leg cellulitis Current Visit: Yes Status: Acute Code(s): L03.116 - CELLULITIS OF LEFT LOWER LIMB; L03.115 - CELLULITIS OF RIGHT LOWER LIMB SNOMED Code(s): 866888289 Plan: 1patient presented to the hospital with bilateral lower extremity erythema some superficial ulceration from ruptured blister and did have a large dressing to the left leg concerning for cellulitis failing therapy of terbinafine clinical doubt fungal dermatitis concerning for possible venous stasis dermatitis and a component of bacterial cellulitis 2-patient with multiple antibiotic ALLERGIES that would limit the number of antibiotic safe to use 3-cultures currently growing presumptive Staph aureus with sensitivities pending 4-patient to continue with cefepime and vancomycin while waiting for the culture to finalize if MSSA plan is for oral Keflex versus doxycycline for MRSA advised to follow-up with the vascular surgery and wound care on discharge Dictation was produced using [employer] dictation software. please excuse any grammatical, word or spelling errors. Time with Patient: Less than 30
[2024-03-04] MEDS ORDERED: VANCOMYCIN TROUGH DUE 1 EACH MISC MISCELLANE ONE (10:00)
--- NOTE | 2024-03-06 11:26 | P.DS ---
Providers Date of admission: 02/29/24 10:58 Expected date of discharge: 03/03/24 Attending physician: Janae Brumfield Consults: 02/29/24 11:02 Consult Physician Urgent Consulting Provider: Rosario Baker Consult Reason/Comments: Leg cellulitis, possible fungal infection Do you want consulting provider notified?: Yes Primary care physician: Miguel Evans Hospital Course: Final diagnosis Bilateral lower extremity swelling, cellulitis and diabetic ulcers and blister formation on the left lower leg. Present on admission. Patient was recently treated for fungal dermatitis with epinephrine was seen by dermatology as an outpatient. culture showing presumptive staph Diabetes type 1 insulin-dependent, uncontrolled with hyperglycemia Obesity with a BMI of 32.1 Vaping GI and DVT prophylaxis Full code Discharge disposition Patient is being discharged in a stable condition with guarded prognosis to home with home care . Patient will follow-up with Dr. Evans in the outpatient setting upon discharge. Patient is to continue with Keflex and outpatient follow-up with the wound care center as scheduled. Patient instructed to follow-up with vascular surgery outpatient as well total time taken is greater than 35 minutes. Hospital course This is a 23-year-old male who was recently admitted with bilateral lower extremity cellulitis with failure of outpatient treatment. Patient with significant peripheral vascular disease and poorly controlled diabetes on an insulin pump in the outpatient setting. Cultures obtained showing Staph aureus and patient being followed by infectious disease. Patient was maintained on IV antibiotics and will transition to oral Keflex and close outpatient follow-up with the wound care center. Vascular surgery consult was placed as well for outpatient follow-up. Patient has been cleared by consultations for discharge home. Please refer to other consultation notes for further HPI. Currently no reports of chest pain, shortness of breath, or palpitations. Patient is afebrile. No reports of nausea or vomiting and patient is tolerating diet. Patient will be discharged home today. Guarded prognosis and high risk for r eadmissions. Physical exam: Gen: This is a 23-year-old male who is awake, alert and oriented x 3, well- developed, elderly appearing, obese HEENT: Head is atraumatic, normocephalic. Pupils equal, round. Sclerae is anicteric. NECK: Supple. No JVD. No lymphadenopathy. No thyromegaly. LUNGS: Clear to auscultation. No wheezes or rhonchi. No intercostal retractions. HEART: Regular rate and rhythm. No murmur. ABDOMEN: Soft. Bowel sounds are present. No masses. No tenderness. EXTREMITIES: No pedal edema. No calf tenderness. Bilateral lower extremity swelling with multiple bullae intact noted, swelling has somewhat improved and redness. NEUROLOGICAL: Patient is awake, alert and oriented x3. Cranial nerves 2 through 12 are grossly intact. Please refer to medication reconciliation sheet for a list of medications. The impression and plan of care has been dictated by Rossy Burton, Nurse Practitioner as directed. Dr. Octaviano MD I have performed a history and examination and MDM of this patient, discussed the same with the dictator, and agree with the dictator's assessment and plan as written ,documented as a scribe. Based on total visit time, I have performed more than 50% of the visit. Patient Condition at Discharge: Fair Plan - Discharge Summary Discharge Rx Participant: Yes New Discharge Prescriptions: New Cephalexin [Keflex] 500 mg PO Q8HR 7 Days #21 cap Acetaminophen Tab [Tylenol] 650 mg PO Q6HR PRN tab PRN Reason: Mild Pain Or Fever > 100.5 HYDROcodone/APAP 7.5-325MG [[place] 7.5-325] 1 each PO Q4H PRN #6 tab PRN Reason: Pain Continue Insulin Lispro [humaLOG Kwikpen] See Protocol SQ ACHS PRN PRN Reason: pump failure Insulin Glargine,Hum.rec.anlog [Lantus Solostar Pen] 40 units SQ DAILY PRN PRN Reason: pump failure INSULIN LISPRO (For Pump) [humaLOG (For Pump)] 0.01 units SQ-PUMP CONTINUOUS Discharge Medication List INSULIN LISPRO (For Pump) [humaLOG (For Pump)] 0.01 units SQ-PUMP CONTINUOUS 02/29/24 [History] Insulin Glargine,Hum.rec.anlog [Lantus Solostar Pen] 40 units SQ DAILY PRN 02/29/24 [History] Insulin Lispro [humaLOG Kwikpen] See Protocol SQ ACHS PRN 02/29/24 [History] Acetaminophen Tab [Tylenol] 650 mg PO Q6HR PRN tab 03/03/24 [Rx] Cephalexin [Keflex] 500 mg PO Q8HR 7 Days #21 cap 07/12/24 [Rx] HYDROcodone/APAP 7.5-325MG [[place] 7.5-325] 1 each PO Q4H PRN #6 tab 03/03/24 [Rx] Follow up Appointment(s)/Referral(s): Miguel Evans MD [Primary Care Provider] - 1-2 days (Please make follow up appointment. ) Glendy Sherwood DO [STAFF PHYSICIAN] - 1 Week (Please make follow up appointment. Office closed at time of call. ) [facility] [NON-STAFF] - 1 Week (Please call and make follow up appointment. Office closed at time of call. ) Activity/Diet/Wound Care/Special Instructions: Activity limited until follow-up Follow-up with primary care provider on discharge Follow-up with wound care center outpatient Follow-up with vascular surgery outpatient Continue to elevate lower extremities while at rest Continue with local wound care by applying absorbent of silver moistened, zinc barrier cream to intact skin, wrap with rolled gauze and secure with tape. Wrapped with Lan wrap for compression from the toes up to the knees and continue to elevate the legs at least for 30 minutes 3 times daily. Avoid sitting with her legs dependent Continue with tight glycemic control and continue consistent carb diet Discharge Disposition: HOME WITH HOME HEALTH SERVICES
--- NOTE | 2024-03-06 21:19 | CDI ---
Documentation Clarification Form Date: 03/06/2024 09:07:53 PM From: Paola Ramirez Phone: Admit Date: 02/29/2024 10:58:00 AM Patient Name: Yolie Kraft Visit Number: [id number] Discharge Date: 03/03/2024 03:25:00 PM ATTENTION: The Clinical Documentation Specialists (CDI) and [facility] Coding Staff appreciate your assistance in clarifying documentation. Please respond to the clarification below the line at the bottom and electronically sign. The CDI & [facility] Coding staff will review the response and follow-up if needed. Please note: Queries are made part of the Legal Health Record. If you have any questions, please contact the author of this message via ITS. Dr. Janae Brumfield Cellulitis is documented throughout the Progress Notes. Additional clarification regarding the type of cellulitis is requested. History/risk factors: 23yo M, DMI w insulin pump, hyperglycemia & neuropathy, BLE cellulitis, ulcers, venous stasisdermatitis, MSSA, PVD, venous HTN, vape smoker Clinical Indicators: Presented hospital with BLE erythemasome superficialulcerationfromrupturedblisterand did have a largeblisterto the left leg concerning forcellulitisfailingtherapyof terbinafine clinicaldoubt fungaldermatitisconcerning forpossiblevenous stasisdermatitisand a component of bacterialcellulitis Treatment: Infectious diseasefollowing and preliminary culture showing presumptivestaph; allergic to multiple antibiotics; continue with Keflex and OP; follow-up with the wound care center as scheduled. Patient instructed to follow-up with vascular surgery outpatient as well total time taken is greater than 35 minutes. Please clarify the type of cellulitis, if known: [ x ] Diabetic cellulitis [ ] Bacterial, MSSA, cellulitis [ ] Other, please specify: [ ] Unable to determine (Template Last Revised: August 2022) MTDD
== END 2024-03-03 15:25 | disposition home health service (06) | DRG 380 ==
LOC: EC 08:45 → 5NMEDONC 10:58 → 1SOBS 16:34 → 5NMEDONC 03-01 16:45
PROVIDERS: ADMIT Internal Medicine; ATTEND Internal Medicine
DX: E10.622 Type 1 diabetes mellitus with other skin ulcer (principal); L97.922 Non-pressure chronic ulcer of unspecified part of left lower leg with fat layer exposed; L97.912 Non-pressure chronic ulcer of unspecified part of right lower leg with fat layer exposed; E10.42 Type 1 diabetes mellitus with diabetic polyneuropathy; E10.51 Type 1 diabetes mellitus with diabetic peripheral angiopathy without gangrene; I87.333 Chronic venous hypertension (idiopathic) with ulcer and inflammation of bilateral lower extremity; E10.69 Type 1 diabetes mellitus with other specified complication; E10.65 Type 1 diabetes mellitus with hyperglycemia; Z79.4 Long term (current) use of insulin; Z68.32 Body mass index [BMI] 32.0-32.9, adult; E66.9 Obesity, unspecified; B95.61 Methicillin susceptible Staphylococcus aureus infection as the cause of diseases classified elsewhere; L03.115 Cellulitis of right lower limb; L03.116 Cellulitis of left lower limb; F17.290 Nicotine dependence, other tobacco product, uncomplicated; I87.2 Venous insufficiency (chronic) (peripheral); Z96.41 Presence of insulin pump (external) (internal); Z88.0 Allergy status to penicillin; Z88.1 Allergy status to other antibiotic agents; Z88.8 Allergy status to other drugs, medicaments and biological substances
CPT/HCPCS: 36415; 80048; 80053; 80202; 83605; 83735; 85025; 87040; 87070; 87077; 87186; 87205; 93970; 96361; 96365; 96366; 96375; 99285